=== PATIENT | male | born 1955 | race Caucasian/White ===

== ENCOUNTER 2021-02-09 13:11 | Inpatient (IN) | payer MEDICAID ==
[~2021-02-09] VITALS: Ht 172.7 cm; Wt 91.5 kg
[2021-02-09 13:40] VITALS: BP 156/82
[2021-02-09] MEDS ORDERED: BISACODYL 10 MG SUPP PR PRN (13:55)
[2021-02-09] MEDS ORDERED: ACETAMINOPHEN TAB 650MG DOSE (2X325MG) PO PRN (13:55)
[2021-02-09] MEDS ORDERED: **hydrALAZINE HCL** 25 MG TAB PO PRN (13:55)
--- NOTE | 2021-02-09 14:31 | HPEPDOC ---
Mixed Animal Veterinarian Note DATE OF ADMISSION: 02-09-21 DATE OF SERVICE: 02-09-21 TIME OF ADMISSION: Please refer to physician's admission order. SOURCE OF ADMISSION INFORMATION: [facility] record and patient CHIEF COMPLAINT:stroke HISTORY OF PRESENT ILLNESS: 65M pmh HTN, HLD, hx of CVA, depression presented to [facility] 02-02-21 with worsening confusion and recurrent falls. MRI was ordered showing old bilateral basal ganglia infarcts with an acute right stevenson radiata lacunar infarct. He was started on aspirin and statin and had a spinal tab done which ruled out meningitis. The etiology of his stroke was thought to be due to chronic HTN as patient reported non-compliance with BP meds. He had diarrhea and was tested for C diff which was negative. Imaging was also performed on his left knee, pelvis, and sacrum to rule out fractures in setting of recent falls and all were negative, however did show osteopenia. He was evaluated by therapy and found to have mobility and ADL impairments. On admission he reports right should pain and decreased ROM. He also reports some burning with urination. REVIEW OF SYSTEMS: The following is a completed review of systems and has been reviewed. Review of systems otherwise unremarkable. PAIN: Patient self reports right shoulder pain EYES: No recent vision changes EARS, NOSE, & THROAT: +dysphagia CARDIOVASCULAR: Denies chest pain or palpitations PULMONARY: Denies shortness of breath GASTROINTESTINAL: Denies constipation/diarrhea GENITOURINARY: +dysuria. MUSCULOSKELETAL: generalized weakness NEUROLOGICAL:+right sided paresis HEMATOLOGICAL: denies easy bruising SKIN: denies rash PSYCHIATRIC: Unremarkable All other review of systems found to be negative. PAST MEDICAL HISTORY: as per HPI PAST SURGICAL HISTORY: Bilat inguinal hernia repairs ALLERGIES: Please see below. MEDICATIONS: Please see below. SOCIAL HISTORY: no etoh/illicit drugs/smoking DIET: level 2 PHYSICAL EXAMINATION: VITAL SIGNS: Please see below. GENERAL: Pleasant and cooperative. No acute distress. +right facial droop HEENT: PERRL. Extraocular movements intact. Clear conjunctiva, tongue with white coating CARDIOVASCULAR: Regular rate and rhythm. No murmurs, rubs, or gallops LUNGS: Clear to auscultation bilaterally. No wheezes. No rhonchi ABDOMEN: Soft, nontender, nondistended. Positive bowel sounds. Normal active bowel sounds NEUROLOGICAL: Alert and oriented times three. Cranial nerves II through XII grossly intact. Sensation grossly intact EXTREMITIES: 5\5 strength LUE, 4/5 RUE with +pronator drift, 5\5 strength right lower extremity. 5/5 strength in left lower extremity. +pain with external rotation of right shoulder, no signs of dislocation ++TTP right upper trapezius SKIN: no sacral erythema LABORATORY DATA: Please see below. IMAGING:Imaging documentation personally reviewed by record FUNCTIONAL STATUS: Premorbid: Independent with all activities of daily life as well as mobility On Admission: Min assist for bed mobility, functional transfers, dressing, toileting, ambulating Goals: Mod-I bed mobility, functional transfers, dressing, toileting, ambulating, bathing ASSESSMENT:65-year-old M with past medical history of CVA, HTN who presents status post new left coronoa radiata infarct PLAN: 1. rehab- PT/OT advance mobility and ADLs, strengthen/stretch/maintain ROM all 4 limbs -CUFF SLITTER for cog and swallow, patient with dysphagia, oral care, nystatin rinse for thrush 2. Neuro- hx of multiple bilateral strokes, now with left stevenson radiata infarct- c/u ASA and statin for secondary stroke prevention -on celexa which will help with motor recovery 3. CArdiac- hx of HTN c/u BP meds -monitor for signs of CHF, daily weights. -medicine consulted to assist in overall management 4. Resp- patient reporting mild cough, will order sputum cx, monior labs and fever, start combivent and guaifensain in the meantime 5. - patient reporting dysuria will order UA 6. DVT ppx- heparin 7. Pain- right shoulder pain consistent with OA given pain with external rotation, will order lidoderm patch, and X-ray to r/o fracture/subluxation 8. GI ppx- protonix -will add imodium prn loose stools given recent hx of diarrhea (C diff negative) 9. Dispo- tbd POST ADMISSION PHYSICIAN EVALUATION: Medical and functional status: Description of medical status, medical assessment: As above. Rehabilitation diagnosis and current and prior cold morbid medical conditions as above. Risk of complications and plans to mitigate them as above. Description of functional status current status is as above. Prior status as above. Status compared to preadmission: There are no clinically significant differences between the patient's current status and the information described on the preadmission screening document. Treatment plan anticipated: Treatment plan is as described above. Required disciplines including physical therapy, occupational therapy, others as noted above Intensity of services: 3 hours a day, 6 days a week. Special considerations: There are no specific special or safety considerations that would likely preclude immediate implementation of an intensive rehabilitation program or subsequently influence the plan of care. ATTESTATION: Considering all the information above, it is my best judgment that this patient requires intensive rehabilitation therapy as described above and an inpatient hospital environment due to the complexity of nursing, medical, and rehabilitation needs required by the patient. Furthermore, this patient can reasonably be expected to participate in an benefit from an inpatient rehabilitation stay with an interdisciplinary team approach to the delivery of rehabilitation care under the direction and supervision of rehabilitation physician PROGNOSIS: Excellent ESTIMATED LENGTH OF STAY:14-18 days. PROJECTED DISCHARGE DESTINATION: Home with family support and any durable medical equipment required to increase functional safety and mobility. TIME SPENT COUNSELING AND COORDINATING INITIAL CARE: Greater than 70 minutes. Vital Signs Vital Signs Date Time Temp Pulse Resp B/P (MAP) Pulse Ox O2 Delivery O2 Flow Rate FiO2 02/09/21 13:40 99.0 83 18 156/82 (106) 93 Room Air Home Medications Scheduled Amlodipine Besylate (Amlodipine Besylate) 10 Mg Tablet, 10 MG PO DAILY, (Reporte d) Aspirin (Ecotrin) 81 Mg Tablet.dr, 81 MG PO DAILY, (Reported) Citalopram Hydrobromide (Citalopram HBr) 20 Mg Tablet, 20 MG PO DAILY, (Reported) DECREASED FROM 40 MG AT [facility] Heparin Sodium,Porcine/Pf (Heparin Sod 5,000 Unit/ml Syrg) 5,000 Unit/1 Ml Syringe, 5,000 UNIT INJ Q12H, (Reported) STARTED AT [facility] Lisinopril (Lisinopril) 20 Mg Tablet, 20 MG PO DAILY, (Reported) STARTED AT [facility] Melatonin (Melatonin) 5 Mg Capsule, 5 MG PO QHS, (Reported) Pantoprazole Sodium (Pantoprazole Sodium) 40 Mg Tablet.dr, 40 MG PO DAILY, (Rep orted) STARTED AT [facility] Tamsulosin HCl (Flomax) 0.4 Mg Capsule, 0.4 MG PO QHS, (Reported) Allergies Coded Allergies: lactose (Verified Allergy, Unknown, INTOLERANCE, 02/09/21) A-FIB/CHADSVASC A-FIB History Current/History of A-Fib/PAF?: No Current PO Anticoag Therapy: No CAITY HWANG MD Feb 09, 2021 14:31
[2021-02-09] MEDS ORDERED: LOPERAMIDE 2 MG CAPLET PO PRN (14:40)
[2021-02-09] MEDS ORDERED: LISI20TA33 PO (15:22)
[2021-02-09] MEDS ORDERED: HEPA500057 INJ (15:22)
[2021-02-09] MEDS ORDERED: FLOM0.4C39 PO (15:22)
[2021-02-09] MEDS ORDERED: ECOT81TA5 PO (15:22)
[2021-02-09] MEDS ORDERED: PANT40TA29 PO (15:22)
[2021-02-09] MEDS ORDERED: MELA5CAP2 PO (15:22)
[2021-02-09] MEDS ORDERED: CITA20TA7 PO (15:22)
[2021-02-09] MEDS ORDERED: AMLO1TAB25 PO (15:22)
[2021-02-09] MEDS ORDERED: PILL CUTTER 1 EACH XX PRN (15:50)
[2021-02-09 20:00] VITALS: BP 166/90
[2021-02-09] MEDS: ACETAMINOPHEN 500 MG TAB PO SCH (20:19)
[2021-02-09] MEDS: ATORVASTATIN 20 MG TAB PO SCH (20:19)
[2021-02-09] MEDS: RAMELTEON 8 MG TAB (ROZEREM) PO PRN (20:19)
[2021-02-09] MEDS: TAMSULOSIN 0.4 MG CAP PO SCH (20:19)
[2021-02-09] MEDS: CALCIUM/VITAMIN D 500 MG TAB PO SCH (20:19)
[2021-02-09] MEDS: guaiFENesin 200 MG TAB PO SCH (20:19)
[2021-02-09] MEDS: REMEDY PHYTOPLEX Z-GUARD PASTE 113GM TUBE (FROM STOREROOM PRODUCT) TOP SCH (20:21)
[2021-02-09] MEDS: COMBIVENT RESPIMAT 100-20MCG INHALER 4GM INH SCH (20:22)
[2021-02-09] MEDS ORDERED: DOCUSATE SODIUM 100MG CAPSULE PO SCH (21:00)
[2021-02-09] MEDS: NYSTATIN 500,000 U/5 ML SUSP UDC SSP SCH (21:00)
[2021-02-09] MEDS ORDERED: SENNA 8.6 MG TAB (SENOKOT) PO PRN (21:00)
[2021-02-09] MEDS ORDERED: LIDOCAINE 5% (LIDODERM) PATCH TD SCH (21:00)
[2021-02-09] MEDS ORDERED: SENNA 8.6 MG TAB (SENOKOT) PO SCH (21:00)
[2021-02-10] MEDS: **hydrALAZINE HCL** 25 MG TAB PO SCH ×5 (00:11→23:15)
[2021-02-10 06:00] VITALS: BP 150/78
[2021-02-10 07:14] LABS: BASO # 0.1 10^3/uL (0.0-0.2); BASO % 0.6 % (0.0-1.0); EOS # 0.2 10^3/uL (0.0-0.5); EOS % 1.7 % (0.0-3.0); HEMATOCRIT 36.7 % (42.0-52.0); HEMOGLOBIN 12.5 g/dl (13.5-17.5); LYMPH # 1.2 10^3/uL (1.5-5.0); LYMPH % 13.3 % (24.0-44.0); MEAN CORPUSCULAR HEMOGLOBIN 29.5 pg (27.0-33.0); MEAN CORPUSCULAR HGB CONC 34.1 g/dl (32.0-36.5); MEAN CORPUSCULAR VOLUME 86.6 fl (80.0-96.0); MONO # 0.9 10^3/uL (0.0-0.8); MONO % 10.1 % (2.0-8.0); NEUTROPHILS # 6.5 10^3/uL (1.5-8.5); PLATELET COUNT, AUTOMATED 213 10^3/uL (150-450); RED BLOOD COUNT 4.24 10^6/uL (4.30-6.10); WHITE BLOOD COUNT 8.8 10^3/uL (4.0-10.0)
[2021-02-10 07:38] LABS: ALBUMIN 2.9 GM/DL (3.2-5.2); ALT/SGPT 75 U/L (12-78); BILIRUBIN,TOTAL 1.2 MG/DL (0.2-1.0); BLOOD UREA NITROGEN 9 MG/DL (7-18); CALCIUM LEVEL 8.3 MG/DL (8.8-10.2); CARBON DIOXIDE LEVEL 27 MEQ/L (21-32); CHLORIDE LEVEL 104 MEQ/L (98-107); CREATININE FOR GFR 0.78 MG/DL (0.70-1.30); GLOMERULAR FILTRATION RATE > 60.0 (>49); GLUCOSE, FASTING 91 MG/DL (70-100); POTASSIUM SERUM 3.1 MEQ/L (3.5-5.1); SODIUM LEVEL 137 MEQ/L (136-145); TOTAL PROTEIN 5.9 GM/DL (6.4-8.2)
[2021-02-10] MEDS: COMBIVENT RESPIMAT 100-20MCG INHALER 4GM INH SCH ×4 (07:48→19:23)
[2021-02-10] MEDS ORDERED: **NOTE PATIENT COMMENT** MISC XX SCH (09:00)
[2021-02-10] MEDS ORDERED: POTASSIUM CHLORIDE 10 MEQ SR TABLET PO ONE ×2 (09:00→12:00)
[2021-02-10] MEDS: CALCIUM/VITAMIN D 500 MG TAB PO SCH ×2 (09:04→20:56)
[2021-02-10] MEDS: MAGIC MOUTHWASH SUSPENSION BTL SSP SCH ×3 (09:04→17:09)
[2021-02-10] MEDS: CitaloPRAM (CeleXA) 20 MG TAB PO SCH (09:04)
[2021-02-10] MEDS: NYSTATIN 500,000 U/5 ML SUSP UDC SSP SCH ×3 (09:04→20:56)
[2021-02-10] MEDS: PANTOPRAZOLE 40MG TAB (PROTONIX) PO SCH (09:04)
[2021-02-10] MEDS: ACETAMINOPHEN 500 MG TAB PO SCH ×3 (09:05→20:55)
[2021-02-10] MEDS: guaiFENesin 200 MG TAB PO SCH ×3 (09:06→20:56)
[2021-02-10] MEDS: REMEDY PHYTOPLEX Z-GUARD PASTE 113GM TUBE (FROM STOREROOM PRODUCT) TOP SCH ×3 (09:06→20:56)
[2021-02-10] MEDS: ASPIRIN 81MG ENTERIC TABLET PO SCH (09:06)
[2021-02-10] MEDS: HEPARIN SOD (PORCINE) 5000UNITS/ML 1ML VIAL/SYRINGE SC SCH ×2 (09:06→20:56)
--- NOTE | 2021-02-10 09:32 | REP ---
INDICATION: fall with pain on external rotation. COMPARISON: None. TECHNIQUE: Three views of the right shoulder provided. FINDINGS: The right glenohumeral and acromioclavicular joints are normally aligned. 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 Osteoarthritic hypertrophy and narrowing is seen at the AC joint as well. Periarticular soft tissues are unremarkable. The visualized right hemithorax appears intact. IMPRESSION: Moderate glenohumeral and acromioclavicular joint osteoarthritis. <Electronically signed by Huan Lynch > 02/10/21 [id number]
[2021-02-10] MEDS ORDERED: DICLOFENAC EPOLAMINE 1.3 % PATCH TOP ONE (12:00)
--- NOTE | 2021-02-10 12:35 | CR ---
CONSULTATION DATE: 02/10/2021 REASON FOR CONSULTATION: Management of chronic medical problems. HISTORY OF PRESENT ILLNESS: This is a 65-year-old male with a prior history of smoking over 50 pack years, quit 10 years ago, two packs a day since the age of 14, hypertension, dyslipidemia, history of CVA and noncompliance with his medications and depression, was seen at [facility] on 02/02/2021 with altered mental status and gait instability. MRI showed old bilateral basal ganglia infarct with an acute right stevenson radiata lacunar infarct, given aspirin and statin, CSF negative for acute infection. The patient at that time also complained of abdominal discomfort and loose stools, negative C. Diff. Patient was transferred to [facility] for acute rehab services. PAST MEDICAL HISTORY: 1. Hypertension. 2. Hyperlipidemia. 3. Prior history of CVA. 4. Noncompliant with medications. 5. Depression. 6. Prior history of smoking. PAST SURGICAL HISTORY: 1. Bilateral inguinal hernia repair. ALLERGIES: Lactose intolerant. HOSPITAL MEDICATIONS: 1. Lidocaine patch. 2. Flector patch. 3. Potassium. 4. Norvasc. 5. Aspirin. 6. Lisinopril. 7. Celexa. 8. Protonix. 9. Heparin sub q. 10.Magic Mouthwash. 11.Hydralazine. 12.Nystatin. 13.Acetaminophen. 14.Robitussin. 15.Os-Michael D. 16.Senokot. 17.Colace. 18.Flomax. 19.Lipitor. 20.Combivent. 21.Rozerem. 22.Imodium. 23.Dulcolax. 24.Miralax. 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 Patient's health care proxy is Lesley, he is a full code. FAMILY HISTORY: Mother is alive in her 80s, not taking medications, unknown medical problems. Father at the age of 82 with CVA. REVIEW OF SYSTEMS: Patient complains of chronic right shoulder pain, diffuse and loose bowel movements, weakness of his right upper arm, otherwise negative 12 point system review. PHYSICAL EXAMINATION: VITAL SIGNS: Temperature is 98, pulse 81, respiratory rate 18, blood pressure 133/70, 95% on room air. GENERAL: Patient is awake, alert and oriented to person, place and time, answers questions appropriately without any slurred speech, expressive or receptive aphasia. He has a notable right facial asymmetry with drooping on the right. HEENT: Tongue is midline. Uvula is midline. No tracheal deviation. Patient has no nasal flaring, no respiratory distress or stridor, JVD, thyromegaly or cervical lymphadenopathy. Patient appears disheveled. LUNGS: Clear to auscultation. No wheezes, rales or rhonchi. HEART: S1 and S2, sinus rhythm, no murmurs, rubs or gallops. ABDOMEN: Obese, soft, nontender and nondistended. Positive bowel sounds x4 quadrants. EXTREMITIES: No cyanosis or clubbing. NEUROLOGIC: Right facial droop. Patient has 5/5 strength of bilateral lower extremities. Right upper extremity has 4/5 strength. No sensory disturbance. Speech is fluent. Tongue is midline. Uvula is midline. Slight pronator drift on the right upper extremity. No dysmetria on finger to nose testing. LABORATORY DATA AND IMAGING STUDIES: Have been reviewed. ASSESSMENT AND PLAN: A 65-year-old male with a history of hypertension, hyperlipidemia, prior history of smoking, CVA, noncompliant with medications, admitted after having an acute right stevenson radiata lacunar infarct with old bilateral basal ganglion infarct, complains of diarrhea and right shoulder pain. CURRENT ISSUES: 1. Acute right stevenson radiata lacunar infarct. 2. Old bilateral basal ganglia CVA. 3. Hypertension. 4. Hyperlipidemia. 5. Depression. 6. History of medical noncompliance, not taking his medications. 7. Chronic right shoulder pain. 8. Hypertension. 9. Depression. PLAN: Patient is resumed on all of his home medications including Lipitor, Atorvastatin, Norvasc, Lisinopril, Celexa, Protonix, DVT prophylaxis with Heparin sub q. and bowel regimen. Acute rehab services, PT/OT. Patient has quit smoking. He says he lives with his grandchildren at home and will have supervision. [facility]IT[facility]
[2021-02-10 14:00] VITALS: BP 160/85
[2021-02-10] MEDS: RAMELTEON 8 MG TAB (ROZEREM) PO PRN (20:55)
[2021-02-10] MEDS: ATORVASTATIN 20 MG TAB PO SCH (20:56)
[2021-02-10] MEDS: TAMSULOSIN 0.4 MG CAP PO SCH (20:56)
[2021-02-10 21:00] VITALS: BP 161/80
[2021-02-11 00:14] LABS: BASO % 0.4 % (0.0-1.0); EOS # 0.2 10^3/uL (0.0-0.5); EOS % 1.6 % (0.0-3.0); HEMATOCRIT 39.6 % (42.0-52.0); HEMOGLOBIN 13.3 g/dl (13.5-17.5); LYMPH # 1.3 10^3/uL (1.5-5.0); LYMPH % 14.2 % (24.0-44.0); MEAN CORPUSCULAR HEMOGLOBIN 29.1 pg (27.0-33.0); MEAN CORPUSCULAR HGB CONC 33.6 g/dl (32.0-36.5); MEAN CORPUSCULAR VOLUME 86.7 fl (80.0-96.0); MONO # 0.9 10^3/uL (0.0-0.8); MONO % 9.9 % (2.0-8.0); NEUTROPHILS # 6.9 10^3/uL (1.5-8.5); NEUTROPHILS % 73.6 % (36.0-66.0); PLATELET COUNT, AUTOMATED 240 10^3/uL (150-450); RED BLOOD COUNT 4.57 10^6/uL (4.30-6.10); WHITE BLOOD COUNT 9.3 10^3/uL (4.0-10.0)
[2021-02-11] MEDS: APIXABAN 5 MG TAB (ELIQUIS) PO SCH ×3 (00:22→21:41)
--- NOTE | 2021-02-11 00:27 | IPNPDOC ---
Text Note Date of Service The patient was seen on 02/11/21. NOTE Alerted by nursing staff patient was found to have irregular heart beat on ro utine assessment. EKG performed at this time showed rate controlled a-fib. I saw and examined the patient who had no complaints and told me he has never been diagnosed with an arrhythmia to his knowledge. Patient had irregularly irregular rhythm on auscultation. plan: start eliquis 5mg bid, f/u cbc, cmp, bnp, cardiac injury profile, tsh, t4, echo. I will also be holding patients celexa at this time as his qt interval was 498 and celexa is known to prolong qt interval VS,Fishbone, I+O VS, Fishbone, I+O Laboratory Tests 02/10/21 06:26 02/10/21 06:27 02/11/21 00:00 Vital Signs Date Time Temp Pulse Resp B/P (MAP) Pulse Ox O2 Delivery O2 Flow Rate FiO2 02/10/21 23:15 132/75 02/10/21 21:00 98.9 87 18 94 Room Air I&O- Last 24 Hours up to 6 AM 02/11/21 05:59 Intake Total 350 ml Output Total 650 ml Balance -300 ml UGO FONTANEZ Feb 11, 2021 00:27
[2021-02-11 00:45] LABS: ALT/SGPT 70 U/L (12-78); BILIRUBIN,TOTAL 0.8 MG/DL (0.2-1.0); BLOOD UREA NITROGEN 11 MG/DL (7-18); CALCIUM LEVEL 8.6 MG/DL (8.8-10.2); CARBON DIOXIDE LEVEL 25 MEQ/L (21-32); CHLORIDE LEVEL 108 MEQ/L (98-107); CK-MB VALUE MASS 3.6 NG/ML (<3.6); CPK CREATINE PHOSPHOKINASE 181 U/L (39-308); CREATININE FOR GFR 0.72 MG/DL (0.70-1.30); FREE T4 1.36 NG/DL (0.76-1.46); GLOMERULAR FILTRATION RATE > 60.0 (>49); GLUCOSE, FASTING 107 MG/DL (70-100); MAGNESIUM LEVEL 2.1 MG/DL (1.8-2.4); MB/CK RELATIVE INDEX 1.99 (< OR =4); NT-PRO BNP 1025 PG/ML (<125); POTASSIUM SERUM 3.3 MEQ/L (3.5-5.1); SODIUM LEVEL 141 MEQ/L (136-145); TOTAL PROTEIN 6.1 GM/DL (6.4-8.2)
[2021-02-11 06:30] VITALS: BP 130/78
[2021-02-11] MEDS: **hydrALAZINE HCL** 25 MG TAB PO SCH ×4 (06:50→23:10)
[2021-02-11] MEDS: COMBIVENT RESPIMAT 100-20MCG INHALER 4GM INH SCH ×4 (07:21→20:19)
[2021-02-11 07:27] LABS: BLOOD UREA NITROGEN 11 MG/DL (7-18); CALCIUM LEVEL 8.6 MG/DL (8.8-10.2); CARBON DIOXIDE LEVEL 23 MEQ/L (21-32); CHLORIDE LEVEL 108 MEQ/L (98-107); CREATININE FOR GFR 0.82 MG/DL (0.70-1.30); GLOMERULAR FILTRATION RATE > 60.0 (>49); GLUCOSE, FASTING 99 MG/DL (70-100); POTASSIUM SERUM 3.3 MEQ/L (3.5-5.1); SODIUM LEVEL 141 MEQ/L (136-145)
[2021-02-11] MEDS: MAGIC MOUTHWASH SUSPENSION BTL SSP SCH ×3 (09:05→17:13)
[2021-02-11] MEDS: REMEDY PHYTOPLEX Z-GUARD PASTE 113GM TUBE (FROM STOREROOM PRODUCT) TOP SCH ×3 (09:05→21:42)
[2021-02-11] MEDS: LIDOCAINE 5% (LIDODERM) PATCH TD SCH (09:05)
[2021-02-11] MEDS: guaiFENesin 200 MG TAB PO SCH ×3 (09:06→21:41)
[2021-02-11] MEDS: NYSTATIN 500,000 U/5 ML SUSP UDC SSP SCH ×3 (09:06→21:40)
[2021-02-11] MEDS: POTASSIUM CHLORIDE 10 MEQ SR TABLET PO SCH ×2 (09:06→21:41)
[2021-02-11] MEDS: CALCIUM/VITAMIN D 500 MG TAB PO SCH ×2 (09:06→21:41)
[2021-02-11] MEDS: ACETAMINOPHEN 500 MG TAB PO SCH ×3 (09:06→21:40)
[2021-02-11] MEDS: ASPIRIN 81MG ENTERIC TABLET PO SCH (09:06)
[2021-02-11] MEDS: PANTOPRAZOLE 40MG TAB (PROTONIX) PO SCH (09:06)
[2021-02-11] MEDS ORDERED: MECLIZINE 25 MG TABLET PO ONE (09:30)
[2021-02-11 10:00] VITALS: BP_SYST 139; BP_SYST 146; BP_SYST 149; BP_DIAS 74; BP_DIAS 78; BP_DIAS 87
--- NOTE | 2021-02-11 12:51 | ECGEPIP ---
[facility] Test Date: 2021-02-10 Pat Name: BRYON SINGH Department: Room: [place] [address] Gender: Male Manual Tester: EMILIANA : [id number] Requested By: UGO Gaytan Order Number: [id number] Reading MD: Dhruv Perla Measurements Intervals [place] Rate: 89 P: DE: QRS: 67 QRSD: 114 T: 0 QT: 410 QTc: 498 Interpretive Statements underlying atrial fibrillation with controlled ventricular response. Incomplete RIGHT BUNDLE BRANCH BLOCK with slow precordial R wave progression, persistent R waves in V5 and V6, and minuscule inferior Q waves; body habitus versus pulmonary disease. Rule out prior IWMI. No prior tracing for comparison. Clincal correlation advised Electronically Signed on 02-11-2021 12:51:04 EDT by Dhruv Perla
[2021-02-11 14:00] VITALS: BP_SYST 137; BP_SYST 145; BP_SYST 160; BP_DIAS 78; BP_DIAS 80; BP_DIAS 83
[2021-02-11 18:00] VITALS: BP_SYST 138; BP_SYST 139; BP_SYST 142; BP_DIAS 69; BP_DIAS 78
[2021-02-11] MEDS: NS 1,000 ML IV SCH (18:52)
[2021-02-11 21:00] VITALS: BP 134/71
[2021-02-11] MEDS: TAMSULOSIN 0.4 MG CAP PO SCH (21:40)
[2021-02-11] MEDS: ATORVASTATIN 20 MG TAB PO SCH (21:41)
--- NOTE | 2021-02-11 21:41 | IPNPDOC ---
PM&R Progress Note DATE OF SERVICE: Feb 10, 2021 Detention Worker Progress Note Subjective: Patient reporting he feels ok today, that he slept well, and has no new weakness or fevers. REVIEW OF SYSTEMS: The following is a completed review of systems and has been reviewed. Review of systems otherwise unremarkable. PAIN: Patient self reports right shoulder pain EYES: No recent vision changes EARS, NOSE, & THROAT: +dysphagia CARDIOVASCULAR: Denies chest pain or palpitations PULMONARY: Denies shortness of breath GASTROINTESTINAL: Denies constipation/diarrhea GENITOURINARY: +dysuria (improving) MUSCULOSKELETAL: generalized weakness NEUROLOGICAL:+right sided paresis HEMATOLOGICAL: denies easy bruising SKIN: denies rash PSYCHIATRIC: Unremarkable All other review of systems found to be negative. PHYSICAL EXAMINATION: VITAL SIGNS: Please see below. GENERAL: Pleasant and cooperative. No acute distress. +right facial droop HEENT: PERRL. Extraocular movements intact. Clear conjunctiva, tongue with white coating CARDIOVASCULAR: Regular rate and rhythm. No murmurs, rubs, or gallops LUNGS: Clear to auscultation bilaterally. No wheezes. No rhonchi ABDOMEN: Soft, nontender, nondistended. Positive bowel sounds. Normal active bowel sounds NEUROLOGICAL: Alert and oriented times three. Cranial nerves II through XII grossly intact. Sensation grossly intact EXTREMITIES: 5\5 strength LUE, 4/5 RUE with +pronator drift, 5\5 strength right lower extremity. 5/5 strength in left lower extremity. +pain with external rotation of right shoulder, no signs of dislocation, negative neers +TTP right upper trapezius SKIN: no sacral erythema ASSESSMENT:65-year-old M with past medical history of CVA, HTN who presents stat us post new left coronoa radiata infarct PLAN: 1. rehab- PT/OT advance mobility and ADLs, strengthen/stretch/maintain ROM all 4 limbs -HOP SEPARATOR for cog and swallow, patient with dysphagia, oral care, nystatin rinse for thrush 2. Neuro- hx of multiple bilateral strokes, now with left stevenson radiata infa rct- c/u ASA and statin for secondary stroke prevention -on celexa which will help with motor recovery 3. CArdiac- hx of HTN c/u BP meds -monitor for signs of CHF, daily weights. -medicine consulted to assist in overall management 4. Resp- patient reporting mild cough, f/u sputum cx, monitor labs and fever, c/u combivent and guaifenesin 5. - patient reporting dysuria- UA negative for infection 6. DVT ppx- heparin 7. Pain- right shoulder pain consistent with OA given pain with external rotati on, will order lidoderm patch, X-ray ordered to r/o fracture/subluxation 8. GI ppx- protonix -c/u imodium prn loose stools given recent hx of diarrhea (C diff negative) 9. Dispo- tbd Allergies Coded Allergies: lactose (Verified Allergy, Unknown, INTOLERANCE, 02/09/21) Vital Signs Vital Signs Date Time Temp Pulse Resp B/P (MAP) Pulse Ox O2 Delivery O2 Flow Rate FiO2 02/11/21 18:00 99.3 100 18 139/78 (98) 94 Room Air Laboratory Data CBC/BMP Laboratory Tests 02/11/21 00:00 02/11/21 06:18 Labs 24H Laboratory Tests 2 02/11/21 00:00: Immature Granulocyte % (Auto) 0.3, Neutrophils (%) (Auto) 73.6H, Lymphocytes (%) (Auto) 14.2L, Monocytes (%) (Auto) 9.9H, Eosinophils (%) (Auto) 1.6, Basophils (%) (Auto) 0.4, Neutrophils # (Auto) 6.9, Lymphocytes # (Auto) 1.3L, Monocytes # (Auto) 0.9H, Eosinophils # (Auto) 0.2, Basophils # (Auto) 0.0, Nucleated Red Blood Cells % (auto) 0.0, Anion Gap 8, Glomerular Filtration Rate > 60.0, Calcium Level 8.6L, Magnesium Level 2.1, Total Bilirubin 0.8, Aspartate Amino Transf (AST/SGOT) 48H, Alanine Aminotransferase (ALT/SGPT) 70, Alkaline Phosphatase 123H, Total Creatine Kinase 181, Creatine Kinase MB 3.6, Creatine Kinase MB Relative Index 1.99, LO-Qio-E-Type Natriuretic Peptide 1025H, Total Protein 6.1L, Albumin 3.0L, Albumin/Globulin Ratio 1.0, Thyroid Stimulating Hormone (TSH) 3.070, Free Thyroxine 1.36 02/11/21 06:18: Anion Gap 10, Glomerular Filtration Rate > 60.0, Calcium Level 8.6L Current Medications Current Medications Current Medications Medications (Trade) Dose Ordered Sig/Wallace Route PRN Reason Start Time Stop Time Status Last Admin Dose Admin Acetaminophen (Tylenol Tab) 650 mg Q4HP PRN PO fever/MILD PAIN (PS 1-4) 02/09/21 13:55 02/09/21 18:58 DC 02/09/21 18:41 Acetaminophen (Tylenol Tab) 1,000 mg TID PO 02/09/21 21:00 02/11/21 17:14 Albuterol/ Ipratropium (Combivent Respimat 100-20mcg) 1 puff RQID INH 02/09/21 20:00 02/11/21 20:19 Amlodipine Besylate (Norvasc) 10 mg DAILY PO 02/10/21 09:00 02/11/21 09:07 Apixaban (Eliquis) 5 mg BID PO 02/10/21 21:00 02/11/21 09:07 Aspirin (Ecotrin) 81 mg DAILY PO 02/10/21 09:00 02/11/21 09:06 Atorvastatin Calcium (Lipitor) 80 mg QHS PO 02/09/21 21:00 02/10/21 20:56 Bisacodyl (Dulcolax Suppository) 10 mg DAILYPRN PRN PA CONSTIPATION 02/09/21 13:55 Calcium/Vitamin D (Oscal D) 500 mg BID PO 02/09/21 21:00 02/11/21 09:06 Citalopram Hydrobromide (CeleXA) 20 mg DAILY PO 02/10/21 09:00 Hold 02/10/21 09:04 Docusate Sodium (Colace) 100 mg BID PO 02/09/21 21:00 02/09/21 14:41 DC Docusate Sodium (Colace) 100 mg BID PRN PO constipation 02/09/21 21:00 Guaifenesin (Robitussin Tab) 400 mg TID PO 02/09/21 21:00 02/11/21 17:14 Heparin Sodium (Porcine) (Heparin) 5,000 units Q12H SC 02/10/21 09:00 02/10/21 23:39 DC 02/10/21 20:56 Home Med (Med Rec Complete!) ASDIRECTED XX 02/09/21 15:25 02/09/21 15:38 DC Hydralazine HCl (Apresoline) 12.5 mg Q6H PRN PO sBP >140 or dBP >90 02/09/21 13:55 02/09/21 21:54 DC 02/09/21 20:20 Hydralazine HCl (Apresoline) 25 mg Q6H PO 02/10/21 00:00 02/11/21 17:14 Lidocaine (Lidoderm Patch) 1 patch QHS TD 02/09/21 21:00 02/10/21 09:34 DC 02/09/21 20:20 Lidocaine (Lidoderm Patch) 2 patch DAILY TD 02/11/21 09:00 02/11/21 09:05 Lidocaine/ Diphenhydr/Alum/ Mg/Simeth (Magic Mouthwash) 5ML AC SSP 02/10/21 07:30 02/11/21 17:13 Lisinopril (Prinivil) 20 mg DAILY PO 02/10/21 09:00 02/11/21 09:06 Loperamide HCl (Imodium) 2 mg ASDIRECTED PRN PO DIARRHEA 02/09/21 14:40 Meclizine HCl (Antivert) 50 mg TIDP PRN PO dizziness 02/11/21 08:40 Non-Formulary Medication ( See Comment Field Below ) REMOVE LIDODERM PATCH DAILY@0900 XX 02/10/21 09:00 02/10/21 13:00 DC 02/10/21 09:06 Non-Formulary Medication ( See Comment Field Below ) REMOVE LIDODERM PATCH DAILY@21 XX 02/11/21 21:00 Nystatin (Mycostatin) 5 ml TID SSP 02/09/21 21:00 02/14/21 16:01 02/11/21 17:14 Pantoprazole Sodium (Protonix) 40 mg DAILY PO 02/10/21 09:00 02/11/21 09:06 Polyethylene Glycol (Miralax) 1 pkt DAILY PRN PO CONSTIPATION 02/09/21 13:55 Potassium Chloride (Micro-K Extencaps) 40 meq BID PO 02/11/21 09:00 02/11/21 09:06 Ramelteon (Rozerem) 8 mg QHS PRN PO INSOMNIA 02/09/21 19:45 02/10/21 20:55 Senna (Senokot) 1 tab QHS PO 02/09/21 21:00 02/09/21 14:41 DC Senna (Senokot) 1 tab QHS PRN PO constipation 02/09/21 21:00 Sodium Chloride 1,000 ml @ 100 mls/hr Q10H IV 02/11/21 19:00 02/12/21 14:59 02/11/21 18:52 Tamsulosin HCl (Flomax) 0.4 mg DAILY@2100 PO 02/09/21 21:00 02/10/21 20:56 CAITY HWANG MD Feb 11, 2021 21:41
[2021-02-11] MEDS: **NOTE PATIENT COMMENT** MISC XX SCH (21:42)
[2021-02-12] MEDS: NS 1,000 ML IV SCH (04:27)
[2021-02-12] MEDS: **hydrALAZINE HCL** 25 MG TAB PO SCH ×4 (06:20→23:45)
[2021-02-12 06:23] VITALS: BP 131/69
[2021-02-12] MEDS: COMBIVENT RESPIMAT 100-20MCG INHALER 4GM INH SCH ×4 (07:24→19:10)
[2021-02-12] MEDS: REMEDY PHYTOPLEX Z-GUARD PASTE 113GM TUBE (FROM STOREROOM PRODUCT) TOP SCH ×3 (09:00→20:10)
[2021-02-12] MEDS: NYSTATIN 500,000 U/5 ML SUSP UDC SSP SCH ×3 (09:06→20:08)
[2021-02-12] MEDS: PANTOPRAZOLE 40MG TAB (PROTONIX) PO SCH (09:06)
[2021-02-12] MEDS: MAGIC MOUTHWASH SUSPENSION BTL SSP SCH ×3 (09:06→18:31)
[2021-02-12] MEDS: CALCIUM/VITAMIN D 500 MG TAB PO SCH ×2 (09:06→20:09)
[2021-02-12] MEDS: LIDOCAINE 5% (LIDODERM) PATCH TD SCH (09:07)
[2021-02-12] MEDS: guaiFENesin 200 MG TAB PO SCH ×3 (09:07→20:09)
[2021-02-12] MEDS: ASPIRIN 81MG ENTERIC TABLET PO SCH (09:07)
[2021-02-12] MEDS: POTASSIUM CHLORIDE 10 MEQ SR TABLET PO SCH ×2 (09:07→20:09)
[2021-02-12] MEDS: ACETAMINOPHEN 500 MG TAB PO SCH ×3 (09:08→20:09)
[2021-02-12] MEDS: APIXABAN 5 MG TAB (ELIQUIS) PO SCH ×2 (09:08→20:09)
[2021-02-12 14:00] VITALS: BP 149/84
--- NOTE | 2021-02-12 18:42 | IPN ---
PROGRESS NOTE DATE: 02/12/2021 SUBJECTIVE: Patient complained of dizziness, worsening gait ataxia yesterday and was orthostatic with decrease in urine output and decrease in oral intake, saying that he is not feeling well. STAT MRI was performed yesterday. Patient has a recent diagnosis of new onset atrial fibrillation, but was rate controlled, appeared to be orthostatic, and was given intravenous (IV) fluids overnight. This morning, patient denies any chest pain, pressure, tightness, dizziness or lightheadedness. No falls. No complaints of some gait ataxia currently, with fall precautions and assisted ambulation only. Afebrile overnight. No fever, chills or shortness of breath. PHYSICAL EXAMINATION: Temperature 98.1, pulse 86, respiratory rate 16, blood pressure 131/69, 96% on room air. INTAKE AND OUTPUT: Intake 1070, output 525 yesterday. Current weight is 91.6 kg. GENERAL: Awake, alert, oriented, able to speak in full sentences. HEENT: No nasopharyngeal deviation. Face is asymmetric with right facial drooping. Uvula and tongue both midline. LUNGS: Clear to auscultation. No wheezing, rales or rhonchi. HEART: S1, S2. Irregularly irregular. ABDOMEN: Soft, nontender, nondistended. Positive bowel sounds. EXTREMITIES: No cyanosis or clubbing. NEUROLOGIC: Slight pronator drift on the right upper extremity. No dysmetria on [id number]-[id number] testing. Right upper extremity 4/5 strength. Bilateral lower extremities 5/5 strength. LABORATORY DATA: Laboratory data, imaging studies: Please see the chart. ASSESSMENT: A 65-year-old male with history of hypertension, hyperlipidemia, prior history of smoking, cerebrovascular accident (CVA), noncompliant with medications, admitted after an acute right stevenson radiata lacunar infarction with old bilateral basal ganglia infarctions, complaint of diarrhea and right shoulder pain, admitted to acute rehabilitation services due to new CVA in the setting of old bilateral basal ganglia CVA. Patient complained of dizziness, was found to be orthostatic and complained of not feeling well with decrease in urine output. Active issues are as follows: 1. Decrease in urine output due to poor oral intake. Patient is currently on IV fluid trial times 2 liters. Monitor intake and output and hold blood pressure medications if he becomes hypotensive. 2. Acute right stevenson radiata lacunar infarction with old bilateral basal ganglia cerebrovascular accident (CVA) with ataxia. Worsening. Repeat MRI has been reviewed. Patient has a new onset of atrial fibrillation and has been placed on Eliquis 5 mg twice a day. 3. New onset atrial fibrillation. Currently on apixaban. Has had two doses prior to worsening gait ataxia yesterday. Compliant with medications in acute rehabilitation unit and has not been refusing anything. 4. Hypertension, currently controlled. Holding parameters placed. 5. Hyperlipidemia, chronic. On statin. 6. Depression, chronic. 7. History of medical noncompliance. Not taking his medications for his stroke. Currently compliant while in acute rehabilitation unit (ARU). 8. Chronic right shoulder pain. As needed pain medications. PLAN: Fall precautions. Activity as tolerated, but assisted ambulation. Continue with physical therapy (PT), occupational therapy (OT). Monitor intake and output, daily weights and urine output. MTDD
[2021-02-12 19:49] VITALS: BP 142/81
[2021-02-12] MEDS: ATORVASTATIN 20 MG TAB PO SCH (20:08)
[2021-02-12] MEDS: TAMSULOSIN 0.4 MG CAP PO SCH (20:09)
[2021-02-12] MEDS: **NOTE PATIENT COMMENT** MISC XX SCH (20:10)
[2021-02-12] MEDS: RAMELTEON 8 MG TAB (ROZEREM) PO PRN (23:48)
[2021-02-13] VITALS (11 sets, daily range): BP systolic 116–200; BP diastolic 68–100
[2021-02-13] MEDS: **hydrALAZINE HCL** 25 MG TAB PO SCH ×3 (05:09→17:51)
[2021-02-13] MEDS: MAGIC MOUTHWASH SUSPENSION BTL SSP SCH ×3 (07:30→16:38)
[2021-02-13] MEDS: ASPIRIN 81MG ENTERIC TABLET PO SCH (08:11)
[2021-02-13] MEDS: APIXABAN 5 MG TAB (ELIQUIS) PO SCH ×2 (08:12→20:21)
--- NOTE | 2021-02-13 08:20 | REP ---
INDICATION: new afib dizziness ataxia r/o cerebellar cva. Repeat dictation. Preliminary report is provided at the time of the exam by michael COTA. COMPARISON: None. TECHNIQUE: Axial and sagittal imaging planes are utilized for T1 and T2-weighted scans. Sequences include spin-echo, fast spin echo, FLAIR, and diffusion weighted sequences. FINDINGS: No bony calvarial lesion is seen. Craniocervical junction and upper cervical cord are normal in appearance. There is no MR evidence of significant paranasal sinus disease. No intraorbital abnormality is seen. The lateral, third, and fourth ventricles are normal in size and position. There is no evidence of intracranial mass or hemorrhage. However, T2 weighted scans and diffusion-weighted images demonstrate acute ischemia pattern in several areas. These include the left frontal periventricular region and bilaterally in the posterior frontal periventricular stevenson radiata region. There is restricted diffusion in the left thalamus with some linear area of restricted diffusion coursing along the left cerebral peduncle. There are small vessel changes and there is minimal generalized volume loss. No extra-axial fluid collection is seen. No mass or midline shift is observed. There is evidence of an old lacunar infarct in the right basal ganglia. IMPRESSION: Multifocal areas of acute ischemia as above.. <Electronically signed by Huan Lynch > 02/13/21 1443
[2021-02-13] MEDS: ACETAMINOPHEN 500 MG TAB PO SCH ×3 (09:00→20:22)
[2021-02-13] MEDS: LIDOCAINE 5% (LIDODERM) PATCH TD SCH ×2 (09:00→09:20)
[2021-02-13] MEDS: COMBIVENT RESPIMAT 100-20MCG INHALER 4GM INH SCH ×4 (09:17→20:00)
[2021-02-13] MEDS: PANTOPRAZOLE 40MG TAB (PROTONIX) PO SCH (09:19)
[2021-02-13] MEDS: CALCIUM/VITAMIN D 500 MG TAB PO SCH ×2 (09:19→20:21)
[2021-02-13] MEDS: NYSTATIN 500,000 U/5 ML SUSP UDC SSP SCH ×3 (09:19→20:21)
[2021-02-13] MEDS: REMEDY PHYTOPLEX Z-GUARD PASTE 113GM TUBE (FROM STOREROOM PRODUCT) TOP SCH ×3 (09:20→20:23)
[2021-02-13] MEDS: POTASSIUM CHLORIDE 10 MEQ SR TABLET PO SCH ×2 (09:20→20:21)
[2021-02-13] MEDS: guaiFENesin 200 MG TAB PO SCH ×3 (09:20→20:21)
--- NOTE | 2021-02-13 09:49 | IPNPDOC ---
Text Note Date of Service The patient was seen on 02/13/21. NOTE Pt seen and exmained. The patient denies any chest pain, pressure, tightness, dizziness or lightheadedness. Afebrile overnight. No fever, chills or shortness of breath. PHYSICAL EXAMINATION: GENERAL: Awake, alert, oriented, able to speak in full sentences. HEENT: No nasopharyngeal deviation. Face is asymmetric with right facial drooping. Uvula and tongue both midline. LUNGS: Clear to auscultation. No wheezing, rales or rhonchi. HEART: S1, S2. Irregularly irregular. ABDOMEN: Soft, nontender, nondistended. Positive bowel sounds. EXTREMITIES: No cyanosis or clubbing. NEUROLOGIC: Slight pronator drift on the right upper extremity. No dysmetria on [id number]-[id number] testing. Right upper extremity 4/5 strength. Bilateral lower extremities 5/5 strength. LABORATORY DATA: Laboratory data, imaging studies: Please see the chart. ASSESSMENT and PLAN: A 65-year-old male with history of hypertension, hyperlipidemia, prior history of smoking, cerebrovascular accident (CVA), noncompliant with medications, admitted after an acute right stevenson radiata lacunar infarction with old bilateral basal ganglia infarctions, complaint of diarrhea and right shoulder pain, admitted to acute rehabilitation services due to new CVA in the setting of old bilateral basal ganglia CVA. Patient complained of dizziness, was found to be orthostatic and complained of not feeling well with decrease in urine output. Active issues are as follows: 1. Decrease in urine output due to poor oral intake. Patient got IV fluid trial times 2 liters. Monitor intake and output and hold blood pressure medications if he becomes hypotensive. The patient has been on lisinopril 20 mg. We will get a basic metabolic panel to look for the renal function. He shows no signs of dehydration or encephalopathy at this time. 2. Acute right stevenson radiata lacunar infarction with old bilateral basal ganglia cerebrovascular accident (CVA) with ataxia. Patient has a new onset of atrial fibrillation and has been placed on Eliquis 5 mg twice a day. . He c ontinues to be on aspirin and high-dose statin. 3. New onset atrial fibrillation. Currently on apixaban. Has had two doses p rior to worsening gait ataxia yesterday. Compliant with medications in acute rehabilitation unit and has not been refusing anything. 4. Hypertension, currently controlled. Holding parameters placed. On lisinopril and hydralazine. 5. Hyperlipidemia, chronic. On statin. 6. Depression, chronic. 7. History of medical noncompliance. Not taking his medications for his stroke. Currently compliant while in acute rehabilitation unit (ARU). 8. Chronic right shoulder pain. As needed pain medications. Fall precautions. Activity as tolerated, but assisted ambulation. Continue with physical therapy (PT), occupational therapy (OT). Monitor intake and output, daily weights and urine output. Disposition as per primary. VS,Fishbone, I+O VS, Fishbone, I+O Vital Signs Date Time Temp Pulse Resp B/P (MAP) Pulse Ox O2 Delivery O2 Flow Rate FiO2 02/13/21 08:16 72 18 150/88 (108) 02/13/21 05:16 98.5 94 Room Air I&O- Last 24 Hours up to 6 AM 02/13/21 06:00 Intake Total 1770 ml Output Total 675 ml Balance 1095 ml SARAY DODGE MD Feb 13, 2021 09:49
[2021-02-13 11:28] LABS: BLOOD UREA NITROGEN 10 MG/DL (7-18); CALCIUM LEVEL 8.7 MG/DL (8.8-10.2); CARBON DIOXIDE LEVEL 25 MEQ/L (21-32); CHLORIDE LEVEL 106 MEQ/L (98-107); CREATININE FOR GFR 0.75 MG/DL (0.70-1.30); GLOMERULAR FILTRATION RATE > 60.0 (>49); GLUCOSE, FASTING 110 MG/DL (70-100); SODIUM LEVEL 137 MEQ/L (136-145)
[2021-02-13] MEDS: MECLIZINE 25 MG TABLET PO PRN (11:47)
[2021-02-13] MEDS ORDERED: VARIBAR NECTAR 40% w/v 240ML SUSP BTL As Ordered ONE (13:53)
[2021-02-13] MEDS ORDERED: BARIUM SULFATE 700 MG TABLET (E-Z-DISK) As Ordered ONE (13:53)
[2021-02-13] MEDS ORDERED: E-Z-PAQUE 96% w/w SUSP 176GM BTL As Ordered ONE (13:53)
[2021-02-13] MEDS ORDERED: VARIBAR PUDDING 40% w/v 230ML TUBE As Ordered ONE (13:53)
--- NOTE | 2021-02-13 17:16 | REP ---
INDICATION: failed bedside eval. COMPARISON: NONE TECHNIQUE: The procedure was performed under the direct supervision of . The procedure was performed with Vilma Crocker from speech pathology present. 5 CC aliquots of thin, pudding, mixed fruit, soft and solid consistency barium as well as a barium pill were administered. 2.1 minutes of fluoroscopy time was utilized for this procedure. FINDINGS: There is no evidence of penetration or aspiration. A detailed report of this examination will be provided by speech pathology. IMPRESSION: There is no evidence of penetration or aspiration. A detailed report of this examination will be provided by speech pathology. <Electronically signed by Contreras Espitia > 02/13/21 1651 <Electronically signed by Huan Lynch > 02/13/21 [id number]
[2021-02-13] MEDS: TAMSULOSIN 0.4 MG CAP PO SCH (20:21)
[2021-02-13] MEDS: ATORVASTATIN 20 MG TAB PO SCH (20:21)
[2021-02-13] MEDS: **NOTE PATIENT COMMENT** MISC XX SCH (20:22)
[2021-02-13] MEDS: RAMELTEON 8 MG TAB (ROZEREM) PO PRN (20:30)
--- NOTE | 2021-02-13 21:09 | IPNPDOC ---
PM&R Progress Note DATE OF SERVICE: Feb 13, 2021 Mimeographer Progress Note DATE OF ADMISSION: Feb 09, 2021 at 13:26 DATE OF SERVICE: Feb 13, 2021 Subjective: 65M pmh HTN, HLD, hx of CVA, depression presented to [facility] 02[facility]02[facility]21 with worsening confusion and recurrent falls. MRI was ordered showing old bilateral basal ganglia infarcts with an acute right stevenson radiata lacunar infarct. He was started on aspirin and statin and had a spinal tab done which ruled out meningitis. The etiology of his stroke was thought to be due to chronic HTN as patient reported non-compliance with BP meds. He had diarrhea and was tested for C diff which was negative. Imaging was also performed on his left knee, pelvis, and sacrum to rule out fractures in setting of recent falls and all were negative, however did show osteopenia. He was evaluated by therapy and found to have mobility and ADL impairments. On admission he had right shoulder pain and decreased ROM and some burning with urination. 02.13.2021 Morning medications. By the afternoon. It was 116/71. Patient noted he felt as if he was spinning.. Speech pathology noted concern over a bedside swallowing evaluation and barium swallow was requested. Orthostatic blood pressures and ongoing blood pressure monitoring requested. REVIEW OF SYSTEMS: The following is a completed review of systems and has been reviewed. Review of systems otherwise unremarkable. PAIN: Patient notes right shoulder pain EYES: No recent vision changes EARS, NOSE, & THROAT: +dysphagia CARDIOVASCULAR: Denies chest pain or palpitations PULMONARY: Denies shortness of breath GASTROINTESTINAL: Denies constipation/diarrhea GENITOURINARY: +dysuria (improving) MUSCULOSKELETAL: generalized weakness NEUROLOGICAL:+right sided paresis HEMATOLOGICAL: denies easy bruising SKIN: denies rash PSYCHIATRIC: Unremarkable All other review of systems found to be negative. PHYSICAL EXAMINATION: VITAL SIGNS: Please see below. GENERAL: Pleasant and cooperative. Mild distress. HEENT: Extraocular movements intact, no nystagmus. Clear conjunctiva, tongue with white coating over half the tongue, upper plate in place. No adenopathy or neck tenderness. CARDIOVASCULAR: Regular rate and rhythm. No murmurs, rubs, or gallops LUNGS: Clear to auscultation bilaterally. No wheezes. No rhonchi ABDOMEN: Soft, nontender, distended. Positive bowel sounds. Normal active bowel sounds NEUROLOGICAL: Alert. Cranial nerves II through XII intact, mild right facial droop. Sensation grossly intact EXTREMITIES: 5\5 strength LUE, 4/5 RUE, 5\5 strength right lower extremity. 5/5 strength in left lower extremity. Negative Homans. SKIN: no sacral erythema IMAGIN02.13.2021 swallowing study There is no evidence of penetration or aspiration . MRI Brain There is no evidence of intracranial mass or hemorrhage. However, T2 weighted scans and diffusion-weighted images demonstrate acute ischemia pattern in several areas. These include the left frontal periventricular region and bilaterally in the posterior frontal periventricular stevenson radiata region. There is restricted diffusion in the left thalamus with some linear area of restricted diffusion coursing along the left cerebral peduncle. There are small vessel changes and there is minimal generalized volume loss 02.10.2021 Shoulder xray The right glenohumeral and acromioclavicular joints are normally aligned. 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 Osteoarthritic hypertrophy and narrowing is seen at the AC joint as well. Periarticular soft tissues are unremarkable. The visualized right hemithorax appears intact ASSESSMENT:65-year-old M with past medical history of CVA, HTN who presents status post new left coronoa radiata infarct , recent episode of dizziness associated with labile blood pressure, possible orthostatic hypotension, OA right shoulder girdle, no evidence aspiration on swallowing study. PLAN: 1. rehab- PT/OT advance mobility and ADLs, strengthen/stretch/maintain ROM all 4 limbs -OYSTER FLOATER for cog and swallow, patient with dysphagia, oral care, nystatin rinse for thrush 2. Neuro- hx of multiple bilateral strokes, now with left stevenson radiata infarct- c/u ASA and statin for secondary stroke prevention -on celexa 3. Cardiac- hx of HTN c/u BP meds and adjustment timing and dosing appreciate hospitalist input -monitor for signs of CHF, daily weights. -medicine consulted to assist in overall management 4. Resp- patient reporting mild cough, f/u sputum cx, monitor labs and fever, c /u combivent and guaifenesin 5. - patient reporting dysuria- UA negative for infection 6. DVT ppx- heparin 7. Pain- right shoulder pain consistent with OA given pain with external rotation, trial lidoderm patch, X-ray ordered to r/o fracture/subluxation 8. GI ppx- protonix -c/u imodium prn loose stools given recent hx of diarrhea (C diff negative) 9. Dispo- tbd Allergies Coded Allergies: lactose (Verified Allergy, Unknown, INTOLERANCE, 02/09/21) Vital Signs Vital Signs Date Time Temp Pulse Resp B/P (MAP) Pulse Ox O2 Delivery O2 Flow Rate FiO2 02/13/21 18:00 182/94 (123) 02/13/21 14:00 98.6 76 18 96 Room Air Laboratory Data CBC/BMP Laboratory Tests 02/13/21 10:07 Labs 24H Laboratory Tests 2 02/13/21 10:07: Anion Gap 6L, Glomerular Filtration Rate > 60.0, Calcium Level 8.7L Current Medications Current Medications Current Medications Medications (Trade) Dose Ordered Sig/Wallace Route PRN Reason Start Time Stop Time Status Last Admin Dose Admin Acetaminophen (Tylenol Tab) 650 mg Q4HP PRN PO fever/MILD PAIN (PS 1-4) 02/09/21 13:55 02/09/21 18:58 DC 02/09/21 18:41 Acetaminophen (Tylenol Tab) 1,000 mg TID PO 02/09/21 21:00 02/13/21 20:22 Albuterol/ Ipratropium (Combivent Respimat 100-20mcg) 1 puff RQID INH 02/09/21 20:00 02/13/21 11:33 Amlodipine Besylate (Norvasc) 10 mg DAILY PO 02/10/21 09:00 02/13/21 08:11 Apixaban (Eliquis) 5 mg BID PO 02/10/21 21:00 02/13/21 20:21 Aspirin (Ecotrin) 81 mg DAILY PO 02/10/21 09:00 02/13/21 08:11 Atorvastatin Calcium (Lipitor) 80 mg QHS PO 02/09/21 21:00 02/13/21 20:21 Bisacodyl (Dulcolax Suppository) 10 mg DAILYPRN PRN NC CONSTIPATION 02/09/21 13:55 Calcium/Vitamin D (Oscal D) 500 mg BID PO 02/09/21 21:00 02/13/21 20:21 Citalopram Hydrobromide (CeleXA) 20 mg DAILY PO 02/10/21 09:00 Hold 02/10/21 09:04 Docusate Sodium (Colace) 100 mg BID PO 02/09/21 21:00 02/09/21 14:41 DC Docusate Sodium (Colace) 100 mg BID PRN PO constipation 02/09/21 21:00 Guaifenesin (Robitussin Tab) 400 mg TID PO 02/09/21 21:00 02/13/21 20:21 Heparin Sodium (Porcine) (Heparin) 5,000 units Q12H SC 02/10/21 09:00 02/10/21 23:39 DC 02/10/21 20:56 Home Med (Med Rec Complete!) ASDIRECTED XX 02/09/21 15:25 02/09/21 15:38 DC Hydralazine HCl (Apresoline) 12.5 mg Q6H PRN PO sBP >140 or dBP >90 02/09/21 13:55 02/09/21 21:54 DC 02/09/21 20:20 Hydralazine HCl (Apresoline) 25 mg Q6H PO 02/10/21 00:00 02/13/21 17:51 Lidocaine (Lidoderm Patch) 1 patch QHS TD 02/09/21 21:00 02/10/21 09:34 DC 02/09/21 20:20 Lidocaine (Lidoderm Patch) 2 patch DAILY TD 02/11/21 09:00 02/12/21 09:07 Lidocaine/ Diphenhydr/Alum/ Mg/Simeth (Magic Mouthwash) 5ML AC SSP 02/10/21 07:30 02/13/21 16:38 Lisinopril (Prinivil) 20 mg DAILY PO 02/10/21 09:00 02/13/21 08:11 Loperamide HCl (Imodium) 2 mg ASDIRECTED PRN PO DIARRHEA 02/09/21 14:40 Meclizine HCl (Antivert) 50 mg TIDP PRN PO dizziness 02/11/21 08:40 02/13/21 11:47 Non-Formulary Medication ( See Comment Field Below ) REMOVE LIDODERM PATCH DAILY@0900 XX 02/10/21 09:00 02/10/21 13:00 DC 02/10/21 09:06 Non-Formulary Medication ( See Comment Field Below ) REMOVE LIDODERM PATCH DAILY@21 XX 02/11/21 21:00 02/13/21 20:22 Nystatin (Mycostatin) 5 ml TID SSP 02/09/21 21:00 02/14/21 16:01 02/13/21 20:21 Pantoprazole Sodium (Protonix) 40 mg DAILY PO 02/10/21 09:00 02/13/21 09:19 Polyethylene Glycol (Miralax) 1 pkt DAILY PRN PO CONSTIPATION 02/09/21 13:55 Potassium Chloride (Micro-K Extencaps) 40 meq BID PO 02/11/21 09:00 02/13/21 20:21 Ramelteon (Rozerem) 8 mg QHS PRN PO INSOMNIA 02/09/21 19:45 02/13/21 20:30 Senna (Senokot) 1 tab QHS PO 02/09/21 21:00 02/09/21 14:41 DC Senna (Senokot) 1 tab QHS PRN PO constipation 02/09/21 21:00 Sodium Chloride 1,000 ml @ 100 mls/hr Q10H IV 02/11/21 19:00 02/12/21 14:59 DC 02/12/21 04:27 Tamsulosin HCl (Flomax) 0.4 mg DAILY@2100 PO 02/09/21 21:00 02/13/21 20:21 JULIETA SURESH MD Feb 13, 2021 21:09
[2021-02-14] MEDS: **hydrALAZINE HCL** 25 MG TAB PO SCH ×5 (00:10→23:45)
[2021-02-14 06:00] VITALS: BP 170/94
[2021-02-14] MEDS: COMBIVENT RESPIMAT 100-20MCG INHALER 4GM INH SCH ×4 (07:39→20:37)
[2021-02-14] MEDS: NYSTATIN 500,000 U/5 ML SUSP UDC SSP SCH ×2 (08:29→16:15)
[2021-02-14] MEDS: ASPIRIN 81MG ENTERIC TABLET PO SCH (08:29)
[2021-02-14] MEDS: MAGIC MOUTHWASH SUSPENSION BTL SSP SCH ×3 (08:29→18:31)
[2021-02-14] MEDS: PANTOPRAZOLE 40MG TAB (PROTONIX) PO SCH (08:30)
[2021-02-14] MEDS: DOCUSATE SODIUM 100MG CAPSULE PO PRN (08:30)
[2021-02-14] MEDS: MECLIZINE 25 MG TABLET PO PRN (08:30)
[2021-02-14] MEDS: guaiFENesin 200 MG TAB PO SCH ×3 (08:30→21:07)
[2021-02-14] MEDS: CitaloPRAM (CeleXA) 20 MG TAB PO SCH (08:30)
[2021-02-14] MEDS: MIRALAX *UNIT DOSE* 17GM PACKET PO PRN (08:30)
[2021-02-14] MEDS: APIXABAN 5 MG TAB (ELIQUIS) PO SCH ×2 (08:30→21:07)
[2021-02-14] MEDS: CALCIUM/VITAMIN D 500 MG TAB PO SCH ×2 (08:30→21:07)
[2021-02-14] MEDS: POTASSIUM CHLORIDE 10 MEQ SR TABLET PO SCH (08:31)
[2021-02-14] MEDS: ACETAMINOPHEN 500 MG TAB PO SCH ×3 (08:31→21:08)
[2021-02-14] MEDS: LIDOCAINE 5% (LIDODERM) PATCH TD SCH (08:32)
[2021-02-14] MEDS: REMEDY PHYTOPLEX Z-GUARD PASTE 113GM TUBE (FROM STOREROOM PRODUCT) TOP SCH ×3 (08:33→21:08)
[2021-02-14 10:00] VITALS: BP 110/64
[2021-02-14 11:31] VITALS: BP 110/64
--- NOTE | 2021-02-14 12:26 | IPNPDOC ---
Text Note Date of Service The patient was seen on 02/14/21. NOTE Pt seen and exmained. No overnight events PHYSICAL EXAMINATION: GENERAL: Awake, alert, oriented, able to speak in full sentences. HEENT: No nasopharyngeal deviation. Face is asymmetric with right facial drooping. Uvula and tongue both midline. LUNGS: Clear to auscultation. No wheezing, rales or rhonchi. HEART: S1, S2. Irregularly irregular. ABDOMEN: Soft, nontender, nondistended. Positive bowel sounds. EXTREMITIES: No cyanosis or clubbing. NEUROLOGIC: Slight pronator drift on the right upper extremity. No dysmetria on [id number] testing. Right upper extremity 4/5 strength. Bilateral lower extremities 5/5 strength. LABORATORY DATA: Laboratory data, imaging studies: Please see the chart. ASSESSMENT and PLAN: A 65-year-old male with history of hypertension, hyperlipidemia, prior history of smoking, cerebrovascular accident (CVA), noncompliant with medications, admitted after an acute right stevenson radiata lacunar infarction with old bilateral basal ganglia infarctions, complaint of diarrhea and right shoulder pain, admitted to acute rehabilitation services due to new CVA in the setting of old bilateral basal ganglia CVA. Patient complained of dizziness, was found to be orthostatic and complained of not feeling well with decrease in urine output. Active issues are as follows: 1. Decrease in urine output due to poor oral intake. Improved. Patient got IV fluid trial times 2 liters. The patient has been on lisinopril 20 mg. BMP reviewed, Cr stable. He shows no signs of dehydration or encephalopathy at this time. 2. Acute right stevenson radiata lacunar infarction with old bilateral basal ganglia cerebrovascular accident (CVA) with ataxia. Patient has a new onset of atrial fibrillation and has been placed on Eliquis 5 mg twice a day. . He continues to be on aspirin and high-dose statin. 3. New onset atrial fibrillation. Currently on apixaban. Has had two doses prior to worsening gait ataxia yesterday. 4. Hypertension, currently controlled. Holding parameters placed. On lisinopril and hydralazine. 5. Hyperlipidemia, chronic. On statin. 6. Depression, chronic. 7. History of medical noncompliance. Not taking his medications for his stroke. Currently compliant while in acute rehabilitation unit (ARU). 8. Chronic right shoulder pain. As needed pain medications. Fall precautions. Activity as tolerated, but assisted ambulation. Continue with physical therapy (PT), occupational therapy (OT). Monitor intake and output, daily weights and urine output. Disposition as per primary. VS,Fishbone, I+O VS, Fishbone, I+O Vital Signs Date Time Temp Pulse Resp B/P (MAP) Pulse Ox O2 Delivery O2 Flow Rate FiO2 02/14/21 12:00 110/64 02/14/21 11:31 98.0 75 18 95 Room Air I&O- Last 24 Hours up to 6 AM 02/14/21 06:00 Intake Total 470 ml Output Total 2525 ml Balance -2055 ml SARAY DODGE MD Feb 14, 2021 12:26
--- NOTE | 2021-02-14 12:29 | IPNPDOC ---
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 MRI was ordered showing old b ilateral basal ganglia infarcts with an acute right stevenson radiata lacunar infarct. He was started on aspirin and statin and had a spinal tab done which ruled out meningitis. The etiology of his stroke was thought to be due to chronic HTN as patient reported non-compliance with BP meds. He had diarrhea and was tested for C diff which was negative. Imaging was also performed on his left knee, pelvis, and sacrum to rule out fractures in setting of recent falls and all were negative, however did show osteopenia. He was evaluated by therapy and found to have mobility and ADL impairments. On admission he had right shoulder pain and decreased ROM and some burning with urination which has improved. 02.13.2021 BP elevated 200 systolic prior to morning medications. By the afternoon. It was 116/71. Patient noted he felt as if he was spinning. Speech pathology noted concern over a bedside swallowing evaluation and barium swallow was requested. Orthostatic blood pressures and ongoing blood pressure monitoring requested. 02.14.2021 Patient is better today, less complaint of dizziness, ready to participate in OT self-care activities today. Systolic blood pressure again elevated this morning at 170. Prior to medications. I discussed with nursing, adjusting the timing of dosing to begin earlier in the morning. We will continue to monitor. Orthostatics. He has when necessary meclizine for dizziness. However, suspect is more related to the blood pressure changes and poststroke effects. He cleared the swallowing evaluation. Case discussed with hospitalist team. REVIEW OF SYSTEMS: The following is a completed review of systems and has been reviewed. Review of systems otherwise unremarkable. PAIN: Patient notes right shoulder pain EYES: No recent vision changes EARS, NOSE, & THROAT: +dysphagia, cleared swallowing eval CARDIOVASCULAR: Denies chest pain or palpitations PULMONARY: Denies shortness of breath GASTROINTESTINAL: Denies constipation/diarrhea GENITOURINARY: +dysuria (improving) MUSCULOSKELETAL: generalized weakness NEUROLOGICAL:+right sided paresis HEMATOLOGICAL: denies easy bruising SKIN: denies rash PSYCHIATRIC: Unremarkable All other review of systems found to be negative. PHYSICAL EXAMINATION: VITAL SIGNS: Please see below. GENERAL: Pleasant and cooperative. Less distress this morning HEENT: Clear conjunctiva, No adenopathy or neck tenderness, left facial droop.. CARDIOVASCULAR: Regular rate and rhythm. No murmurs, rubs, or gallops LUNGS: Clear to auscultation bilaterally. No wheezes. No rhonchi ABDOMEN: Soft, nontender, distended. Positive bowel sounds. NEUROLOGICAL: Alert. mild left facial droop. Sensation grossly intact EXTREMITIES: 4\\5 strength LUE, 4/5 RUE, 5\\5 strength right TA, 4/5 left negative Homans. FUNCTIONAL STATUS: 02.14.2021 Discussed in TEAM Yesterday Attempted standing therex and short distance ambulation; noting significant SOB with 25ft ambulation; Pt. reporting that "he is beat" and "cannot do anymore". Also noting increased level of assist required as needs Lesli to stand safely at end of session. Returned to supine to assess vital signs as Pt. appearing diaphoretic and with slow reaction to verbal cues and assessment; HR 88bpm; SpO2 96% and BP 132/78mmHg. [id number] swallowing study There is no evidence of penetration or aspiration 02.11.2021 MRI Brain There is no evidence of intracranial mass or hemorrhage. However, T2 weighted scans and diffusion-weighted images demonstrate acute ischemia pattern in several areas. These include the left frontal periventricular region and bilaterally in the posterior frontal periventricular stevenson radiata region. There is restricted diffusion in the left thalamus with some linear area of restricted diffusion coursing along the left cerebral peduncle. There are small vessel changes and there is minimal generalized volume loss 02.10.2021 Shoulder xray The right glenohumeral and acromioclavicular joints are normally aligned. 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 Osteoarthritic hypertrophy and narrowing is seen at the AC joint as well. Periarticular soft tissues are unremarkable. The visualized right hemithorax appears intact ASSESSMENT:65-year-old M with past medical history of CVA, HTN who presents status post new left coronoa radiata infarct , recent episode of dizziness associated with labile blood pressure, possible orthostatic hypotension, OA right shoulder girdle, no evidence aspiration on swallowing study, dysarthric. PLAN: 1. 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 Neuro- hx of multiple bilateral strokes, now with left stevenson radiata infarct- c/u ASA and statin for secondary stroke prevention -on celexa 3. Cardiac-Labile HTN c/u BP meds and adjustment timing and dosing appreciate hospitalist input will shift Lisinopril to PM, give Amlodipine earlier in AM for better 24hr coverage, hopefully minimize orthostatic symptoms/changes. Continue close monitoring as he ended up at systsolic 117 yesterday after starting at 200. -monitor for signs of CHF, daily weights, better I&O. -medicine consulted to assist in overall management 4. Resp- patient reporting mild cough, f/u sputum cx, monitor labs and fever, c/u combivent and guaifenesin 5. - patient reporting dysuria- UA negative for infection encourage fluids, monitor. 6. DVT ppx- heparin 7. Pain- right shoulder pain consistent with OA given pain with external rotation, trial lidoderm patch, X-ray negative for fracture/subluxation 8. GI ppx- protonix -c/u imodium prn loose stools given recent hx of diarrhea (C diff negative) 9. Dispo- tbd TIME SPENT: Chart Review, examination, coordination of care with hospitalist team and documentation [45] minutes. Allergies Coded Allergies: lactose (Verified Allergy, Unknown, INTOLERANCE, 02/09/21) Vital Signs Vital Signs Date Time Temp Pulse Resp B/P (MAP) Pulse Ox O2 Delivery O2 Flow Rate FiO2 02/14/21 12:00 110/64 02/14/21 11:31 98.0 75 18 95 Room Air Current Medications Current Medications Current Medications Medications (Trade) Dose Ordered Sig/Wallace Route PRN Reason Start Time Stop Time Status Last Admin Dose Admin Acetaminophen (Tylenol Tab) 650 mg Q4HP PRN PO fever/MILD PAIN (PS 1-4) 02/09/21 13:55 02/09/21 18:58 DC 02/09/21 18:41 Acetaminophen (Tylenol Tab) 1,000 mg TID PO 02/09/21 21:00 02/13/21 20:22 Albuterol/ Ipratropium (Combivent Respimat 100-20mcg) 1 puff RQID INH 02/09/21 20:00 02/14/21 07:39 Amlodipine Besylate (Norvasc) 10 mg DAILY PO 02/10/21 09:00 02/14/21 12:07 DC 02/14/21 08:31 Amlodipine Besylate (Norvasc) 10 mg DAILY@0600 PO 02/15/21 06:00 Apixaban (Eliquis) 5 mg BID PO 02/10/21 21:00 02/14/21 08:30 Aspirin (Ecotrin) 81 mg DAILY PO 02/10/21 09:00 02/14/21 08:29 Atorvastatin Calcium (Lipitor) 80 mg QHS PO 02/09/21 21:00 02/13/21 20:21 Bisacodyl (Dulcolax Suppository) 10 mg DAILYPRN PRN [place] CONSTIPATION 02/09/21 13:55 Calcium/Vitamin D (Oscal D) 500 mg BID PO 02/09/21 21:00 02/14/21 08:30 Citalopram Hydrobromide (CeleXA) 20 mg DAILY PO 02/10/21 09:00 02/14/21 08:30 Docusate Sodium (Colace) 100 mg BID PO 02/09/21 21:00 02/09/21 14:41 DC Docusate Sodium (Colace) 100 mg BID PRN PO constipation 02/09/21 21:00 02/14/21 08:30 Guaifenesin (Robitussin Tab) 400 mg TID PO 02/09/21 21:00 02/14/21 08:30 Heparin Sodium (Porcine) (Heparin) 5,000 units Q12H SC 02/10/21 09:00 02/10/21 23:39 DC 02/10/21 20:56 Home Med (Med Rec Complete!) ASDIRECTED XX 02/09/21 15:25 02/09/21 15:38 DC Hydralazine HCl (Apresoline) 12.5 mg Q6H PRN PO sBP >140 or dBP >90 02/09/21 13:55 02/09/21 21:54 DC 02/09/21 20:20 Hydralazine HCl (Apresoline) 25 mg Q6H PO 02/10/21 00:00 02/14/21 05:37 Lidocaine (Lidoderm Patch) 1 patch QHS TD 02/09/21 21:00 02/10/21 09:34 DC 02/09/21 20:20 Lidocaine (Lidoderm Patch) 2 patch DAILY TD 02/11/21 09:00 02/14/21 08:32 Lidocaine/ Diphenhydr/Alum/ Mg/Simeth (Magic Mouthwash) 5ML AC SSP 02/10/21 07:30 02/14/21 08:29 Lisinopril (Prinivil) 20 mg DAILY PO 02/10/21 09:00 02/14/21 10:31 DC 02/14/21 08:31 Lisinopril (Prinivil) 20 mg DAILY@0600 PO 02/15/21 06:00 02/14/21 12:07 DC Lisinopril (Prinivil) 20 mg QHS PO 02/14/21 21:00 Loperamide HCl (Imodium) 2 mg ASDIRECTED PRN PO DIARRHEA 02/09/21 14:40 Meclizine HCl (Antivert) 50 mg TIDP PRN PO dizziness 02/11/21 08:40 02/14/21 08:30 Non-Formulary Medication ( See Comment Field Below ) REMOVE LIDODERM PATCH DAILY@0900 XX 02/10/21 09:00 02/10/21 13:00 DC 02/10/21 09:06 Non-Formulary Medication ( See Comment Field Below ) REMOVE LIDODERM PATCH DAILY@21 XX 02/11/21 21:00 02/13/21 20:22 Nystatin (Mycostatin) 5 ml TID SSP 02/09/21 21:00 02/14/21 16:01 02/14/21 08:29 Pantoprazole Sodium (Protonix) 40 mg DAILY PO 02/10/21 09:00 02/14/21 08:30 Polyethylene Glycol (Miralax) 1 pkt DAILY PRN PO CONSTIPATION 02/09/21 13:55 02/14/21 08:30 Potassium Chloride (Micro-K Extencaps) 40 meq BID PO 02/11/21 09:00 02/14/21 11:52 DC 02/14/21 08:31 Ramelteon (Rozerem) 8 mg QHS PRN PO INSOMNIA 02/09/21 19:45 02/13/21 20:30 Senna (Senokot) 1 tab QHS PO 02/09/21 21:00 02/09/21 14:41 DC Senna (Senokot) 1 tab QHS PRN PO constipation 02/09/21 21:00 Sodium Chloride 1,000 ml @ 100 mls/hr Q10H IV 02/11/21 19:00 02/12/21 14:59 DC 02/12/21 04:27 Tamsulosin HCl (Flomax) 0.4 mg DAILY@2100 PO 02/09/21 21:00 02/13/21 20:21 JULIETA SURESH MD Feb 14, 2021 12:29
[2021-02-14 15:00] VITALS: BP 137/87
[2021-02-14 18:00] VITALS: BP 147/82
[2021-02-14 20:00] VITALS: BP 124/76
[2021-02-14] MEDS: **NOTE PATIENT COMMENT** MISC XX SCH (21:00)
[2021-02-14] MEDS: RAMELTEON 8 MG TAB (ROZEREM) PO PRN (21:07)
[2021-02-14] MEDS: TAMSULOSIN 0.4 MG CAP PO SCH (21:07)
[2021-02-14] MEDS: ATORVASTATIN 20 MG TAB PO SCH (21:07)
[2021-02-15] MEDS: **hydrALAZINE HCL** 25 MG TAB PO SCH ×4 (05:28→23:50)
[2021-02-15 05:33] VITALS: BP 122/78
--- NOTE | 2021-02-15 06:36 | ECHO ---
ECHOCARDIOGRAM DATE OF PROCEDURE: 02/14/2021 Age: 65 Gender: Male Height: 68 inches Weight: 200 pounds Body surface area: 2.05 m2 PATIENT LOCATION: Inpatient [address] [place] [address], Room 4142. REFERRING PHYSICIAN: JEANNETTE Eastman. INDICATION: Cardiac dysrhythmias. MEASUREMENTS: 2D Measurements: RV 4.2 cm LV 4.7 cm Septum 1.2 cm Posterior wall 1.2 cm Aortic Root 3.9 cm LA 4.0 cm LVEF 75% Doppler Measurements: AV 1.07 m/s LVOT 0.93 m/s LVOT diameter 2.3 cm MV-E 40, A 60, E/A ratio 0.7 Early mitral deceleration time 288 msec E prime medial 4.5, A prime medial 8.1, E prime lateral 5.9 Average E/E prime ratio 7.7/PCWP 11.4 mmHg PV 0.9 m/s Pulmonary artery acceleration time 103 msec PASP 35 mmHg IVC 1.4 cm COMMENTS: Normal sinus rhythm without intraventricular conduction disturbance. M-mode and two-dimensional echocardiography was performed with pulse, continuous wave, color flow, and tissue Doppler studies. Borderline concentric left ventricular hypertrophy with hyperkinetic wall motion. Slightly dilated left atrium with grade 1 LV diastolic dysfunction, but normal estimated mean left atrial pressure. Slightly dilated right heart chambers with normal wall motion and Doppler evidence of mild pulmonary hypertension. Normal to slightly reduced IVC size with normal respiratory collapse against an elevated central venous pressure. Normal aortic diameters. Normal appearing aortic valve and aortic valve function . Slightly thickened mitral annulus, but normal leaflet thickness and excursion with no valvular dysfunction. Normal appearing tricuspid valve with very mild tricuspid insufficiency. No apparent intracardiac mass or pericardial effusion. MTDD
[2021-02-15] MEDS: COMBIVENT RESPIMAT 100-20MCG INHALER 4GM INH SCH ×4 (07:34→20:00)
[2021-02-15] MEDS: ACETAMINOPHEN 500 MG TAB PO SCH ×3 (09:00→20:22)
[2021-02-15] MEDS: PANTOPRAZOLE 40MG TAB (PROTONIX) PO SCH (09:37)
[2021-02-15] MEDS: guaiFENesin 200 MG TAB PO SCH ×3 (09:37→20:22)
[2021-02-15] MEDS: CALCIUM/VITAMIN D 500 MG TAB PO SCH ×2 (09:37→20:22)
[2021-02-15] MEDS: APIXABAN 5 MG TAB (ELIQUIS) PO SCH ×2 (09:37→20:22)
[2021-02-15] MEDS: CitaloPRAM (CeleXA) 20 MG TAB PO SCH (09:37)
[2021-02-15] MEDS: ASPIRIN 81MG ENTERIC TABLET PO SCH (09:37)
[2021-02-15] MEDS: MECLIZINE 25 MG TABLET PO PRN (09:38)
[2021-02-15] MEDS: LIDOCAINE 5% (LIDODERM) PATCH TD SCH (09:38)
--- NOTE | 2021-02-15 09:38 | IPNPDOC ---
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 MRI was ordered showing old vick ateral basal ganglia infarcts with an acute right stevenson radiata lacunar infarct. He was started on aspirin and statin and had a spinal tap done which ruled out meningitis. The etiology of his stroke was thought to be due to chronic HTN as patient reported non-compliance with BP meds. He had diarrhea and was tested for C diff which was negative. Imaging was also performed on his left knee, pelvis, and sacrum to rule out fractures in setting of recent falls and all were negative, however did show osteopenia. He was evaluated by therapy and found to have mobility and ADL impairments. On admission he had right shoulder pain and decreased ROM and some burning with urination. 02.13.2021 BP elevated 200 systolic prior to morning medications. By the afternoon. It was 116/71. Patient noted he felt as if he was spinning. Speech pathology noted concern over a bedside swallowing evaluation and barium swallow was requested. Orthostatic blood pressures and ongoing blood pressure monitoring requested. 02.14.2021 Patient is better today, less complaint of dizziness, ready to participate in OT self-care activities today. Systolic blood pressure again elevated this morning at 170. Prior to medications. I discussed with nursing, adjusting the timing of dosing to begin earlier in the morning. We will continue to monitor. Orthostatics. He has when necessary meclizine for dizziness. However, suspect is more related to the blood pressure changes and poststroke effects. He cleared the swallowing evaluation. Case discussed with hospitalist team. 02.15.2021 He slept much better last night, blood pressure much improved with splitting the dose, lisinopril, at bedtime, earlier Amlodipine. No dizziness this morning. He is up and participating in therapy, although getting winded very easily. Heart rate and races up over 100 with minimal exertion. BM sluggish, frequent urination. REVIEW OF SYSTEMS: The following is a completed review of systems and has been reviewed. Review of systems otherwise unremarkable. PAIN: Patient notes right shoulder pain EYES: No recent vision changes EARS, NOSE, & THROAT: +dysphagia, cleared swallowing eval CARDIOVASCULAR: Denies chest pain or palpitations PULMONARY: Denies shortness of breath GASTROINTESTINAL: Denies constipation/diarrhea GENITOURINARY: +frequency MUSCULOSKELETAL: generalized weakness NEUROLOGICAL:+right sided paresis HEMATOLOGICAL: denies easy bruising SKIN: denies rash PSYCHIATRIC: Unremarkable All other review of systems found to be negative. PHYSICAL EXAMINATION: VITAL SIGNS: Please see below. GENERAL: Pleasant and cooperative. Less distress this morning HEENT: Clear conjunctiva, No adenopathy or neck tenderness, CARDIOVASCULAR: tachycardia S1,S2 LUNGS: Clear to auscultation bilaterally. No wheezes. No rhonchi ABDOMEN: Soft, nontender, distended. Positive bowel sounds. NEUROLOGICAL: Alert. Sensation grossly intact EXTREMITIES: 4\\5 strength LUE, 4/5 RUE, 5\\5 strength right TA, 4/5 left negative Homans. FUNCTIONAL STATUS: 02.15.2021 Pt without c/o dizziness with transitions this session. Family training being provided and Pt educated on supine ther ex and given paper HEP. Pt remains below baseline, however is motivated to improve and a good rehab candidate, making slow progress. Easily fatigues and requires frequent rest breaks. 02.14.2021 Discussed in TEAM Yesterday Attempted standing therex and short distance ambulation; noting significant SOB with 25ft ambulation; Pt. reporting that "he is beat" and "cannot do anymore". Also noting increased level of assist required as needs Lesli to stand safely at end of session. Returned to supine to assess vital signs as Pt. appearing diaphoretic and with slow reaction to verbal cues and assessment; HR 88bpm; SpO2 96% and BP 132/78mmHg. IMAGIN02.13.2021 swallowing study There is no evidence of penetration or aspiration 02.11.2021 MRI Brain There is no evidence of intracranial mass or hemorrhage. However, T2 weighted scans and diffusion-weighted images demonstrate acute ischemia pattern in several areas. These include the left frontal periventricular region and bilaterally in the posterior frontal periventricular stevenson radiata region. There is restricted diffusion in the left thalamus with some linear area of restricted diffusion coursing along the left cerebral peduncle. There are small vessel changes and there is minimal generalized volume loss 02.10.2021 Shoulder xray The right glenohumeral and acromioclavicular joints are normally aligned. 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 Osteoarthritic hypertrophy and narrowing is seen at the AC joint as well. Periarticular soft tissues are unremarkable. The visualized right hemithorax appears intact ASSESSMENT:65-year-old M with past medical history of CVA, HTN who presents status post new left coronoa radiata infarct , recent episode of dizziness associated with labile blood pressure, possible orthostatic hypotension, OA right shoulder girdle, no evidence aspiration on swallowing study. PLAN: 1. 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 Neuro- hx of multiple bilateral strokes, now with left stevenson radiata infarct- c/u ASA and statin for secondary stroke prevention -on celexa 3. Cardiac-Labile HTN c/u BP meds and adjustment timing and dosing appreciate hospitalist input with shift Lisinopril to PM, Amlodipine earlier in AM for better 24hr coverage, will monitor and hopefully minimize orthostatic symptoms/changes. LAM hose to continue. Continue close monitoring as he continues to have orthostatic changes and heart rate/recovery. -monitor for signs of CHF, daily weights, better I&O. -medicine consulted to assist in overall management 4. Resp- patient cough improving, WBC stable,c/u combivent and guaifenesin 5. - patient reporting frequency and dysuria- last UA pos hematuria, negative for infection encourage fluids, will recheck 6. DVT ppx- heparin 7. Pain- right shoulder pain consistent with OA given pain with external rotation, trial lidoderm patch, X-ray negative for fracture/subluxation 8. GI ppx- protonix -c/u imodium prn loose stools given recent hx of diarrhea (C diff negative) 9. Dispo- tbd TIME SPENT: Chart Review, examination and documentation [30] minutes. Allergies Coded Allergies: lactose (Verified Allergy, Unknown, INTOLERANCE, 02/09/21) Vital Signs Vital Signs Date Time Temp Pulse Resp B/P (MAP) Pulse Ox O2 Delivery O2 Flow Rate FiO2 02/15/21 05:33 97.9 67 17 122/78 (93) 93 Room Air Current Medications Current Medications Current Medications Medications (Trade) Dose Ordered Sig/Wallace Route PRN Reason Start Time Stop Time Status Last Admin Dose Admin Acetaminophen (Tylenol Tab) 650 mg Q4HP PRN PO fever/MILD PAIN (PS 1-4) 02/09/21 13:55 02/09/21 18:58 DC 02/09/21 18:41 Acetaminophen (Tylenol Tab) 1,000 mg TID PO 02/09/21 21:00 02/14/21 21:08 Albuterol/ Ipratropium (Combivent Respimat 100-20mcg) 1 puff RQID INH 02/09/21 20:00 02/15/21 07:34 Amlodipine Besylate (Norvasc) 10 mg DAILY PO 02/10/21 09:00 02/14/21 12:07 DC 02/14/21 08:31 Amlodipine Besylate (Norvasc) 10 mg DAILY@0600 PO 02/15/21 06:00 02/15/21 05:27 Apixaban (Eliquis) 5 mg BID PO 02/10/21 21:00 02/14/21 21:07 Aspirin (Ecotrin) 81 mg DAILY PO 02/10/21 09:00 02/14/21 08:29 Atorvastatin Calcium (Lipitor) 80 mg QHS PO 02/09/21 21:00 02/14/21 21:07 Bisacodyl (Dulcolax Suppository) 10 mg DAILYPRN PRN [place] CONSTIPATION 02/09/21 13:55 Calcium/Vitamin D (Oscal D) 500 mg BID PO 02/09/21 21:00 02/14/21 21:07 Citalopram Hydrobromide (CeleXA) 20 mg DAILY PO 02/10/21 09:00 02/14/21 08:30 Docusate Sodium (Colace) 100 mg BID PO 02/09/21 21:00 02/09/21 14:41 DC Docusate Sodium (Colace) 100 mg BID PRN PO constipation 02/09/21 21:00 02/14/21 08:30 Guaifenesin (Robitussin Tab) 400 mg TID PO 02/09/21 21:00 02/14/21 21:07 Heparin Sodium (Porcine) (Heparin) 5,000 units Q12H SC 02/10/21 09:00 02/10/21 23:39 DC 02/10/21 20:56 Home Med (Med Rec Complete!) ASDIRECTED XX 02/09/21 15:25 02/09/21 15:38 DC Hydralazine HCl (Apresoline) 12.5 mg Q6H PRN PO sBP >140 or dBP >90 02/09/21 13:55 02/09/21 21:54 DC 02/09/21 20:20 Hydralazine HCl (Apresoline) 25 mg Q6H PO 02/10/21 00:00 02/15/21 05:28 Lidocaine (Lidoderm Patch) 1 patch QHS TD 02/09/21 21:00 02/10/21 09:34 DC 02/09/21 20:20 Lidocaine (Lidoderm Patch) 2 patch DAILY TD 02/11/21 09:00 02/14/21 08:32 Lidocaine/ Diphenhydr/Alum/ Mg/Simeth (Magic Mouthwash) 5ML AC SSP 02/10/21 07:30 02/14/21 18:31 Lisinopril (Prinivil) 20 mg DAILY PO 02/10/21 09:00 02/14/21 10:31 DC 02/14/21 08:31 Lisinopril (Prinivil) 20 mg DAILY@0600 PO 02/15/21 06:00 02/14/21 12:07 DC Lisinopril (Prinivil) 20 mg QHS PO 02/14/21 21:00 02/14/21 21:07 Loperamide HCl (Imodium) 2 mg ASDIRECTED PRN PO DIARRHEA 02/09/21 14:40 Meclizine HCl (Antivert) 50 mg TIDP PRN PO dizziness 02/11/21 08:40 02/14/21 08:30 Non-Formulary Medication ( See Comment Field Below ) REMOVE LIDODERM PATCH DAILY@0900 XX 02/10/21 09:00 02/10/21 13:00 DC 02/10/21 09:06 Non-Formulary Medication ( See Comment Field Below ) REMOVE LIDODERM PATCH DAILY@21 XX 02/11/21 21:00 02/13/21 20:22 Nystatin (Mycostatin) 5 ml TID SSP 02/09/21 21:00 02/14/21 16:01 DC 02/14/21 16:15 Pantoprazole Sodium (Protonix) 40 mg DAILY PO 02/10/21 09:00 02/14/21 08:30 Polyethylene Glycol (Miralax) 1 pkt DAILY PRN PO CONSTIPATION 02/09/21 13:55 02/14/21 08:30 Potassium Chloride (Micro-K Extencaps) 40 meq BID PO 02/11/21 09:00 02/14/21 11:52 DC 02/14/21 08:31 Ramelteon (Rozerem) 8 mg QHS PRN PO INSOMNIA 02/09/21 19:45 02/14/21 21:07 Senna (Senokot) 1 tab QHS PO 02/09/21 21:00 02/09/21 14:41 DC Senna (Senokot) 1 tab QHS PRN PO constipation 02/09/21 21:00 Sodium Chloride 1,000 ml @ 100 mls/hr Q10H IV 02/11/21 19:00 02/12/21 14:59 DC 02/12/21 04:27 Tamsulosin HCl (Flomax) 0.4 mg DAILY@2100 PO 02/09/21 21:00 02/14/21 21:07 JULIETA SURESH MD Feb 15, 2021 09:38
[2021-02-15] MEDS: REMEDY PHYTOPLEX Z-GUARD PASTE 113GM TUBE (FROM STOREROOM PRODUCT) TOP SCH ×3 (09:39→20:23)
[2021-02-15] MEDS: MAGIC MOUTHWASH SUSPENSION BTL SSP SCH ×3 (09:39→18:44)
[2021-02-15 10:00] VITALS: BP 170/98
[2021-02-15 14:00] VITALS: BP 125/75
[2021-02-15 20:00] VITALS: BP 142/88
[2021-02-15] MEDS: ATORVASTATIN 20 MG TAB PO SCH (20:22)
[2021-02-15] MEDS: RAMELTEON 8 MG TAB (ROZEREM) PO PRN (20:22)
[2021-02-15] MEDS: TAMSULOSIN 0.4 MG CAP PO SCH (20:22)
[2021-02-15] MEDS: **NOTE PATIENT COMMENT** MISC XX SCH (20:23)
[2021-02-16] MEDS: **hydrALAZINE HCL** 25 MG TAB PO SCH ×4 (05:46→23:53)
[2021-02-16 06:00] VITALS: BP 146/80
[2021-02-16] MEDS: COMBIVENT RESPIMAT 100-20MCG INHALER 4GM INH SCH ×4 (07:20→19:55)
[2021-02-16] MEDS: MAGIC MOUTHWASH SUSPENSION BTL SSP SCH ×3 (07:30→17:54)
[2021-02-16] MEDS: ASPIRIN 81MG ENTERIC TABLET PO SCH (08:33)
[2021-02-16] MEDS: LIDOCAINE 5% (LIDODERM) PATCH TD SCH ×2 (08:33→09:00)
[2021-02-16] MEDS: guaiFENesin 200 MG TAB PO SCH ×3 (08:33→20:11)
[2021-02-16] MEDS: PANTOPRAZOLE 40MG TAB (PROTONIX) PO SCH (08:34)
[2021-02-16] MEDS: CALCIUM/VITAMIN D 500 MG TAB PO SCH ×2 (08:34→20:10)
[2021-02-16] MEDS: CitaloPRAM (CeleXA) 20 MG TAB PO SCH (08:34)
[2021-02-16] MEDS: APIXABAN 5 MG TAB (ELIQUIS) PO SCH ×2 (08:34→20:10)
[2021-02-16] MEDS: ACETAMINOPHEN 500 MG TAB PO SCH ×3 (08:34→20:10)
[2021-02-16] MEDS: REMEDY PHYTOPLEX Z-GUARD PASTE 113GM TUBE (FROM STOREROOM PRODUCT) TOP SCH ×3 (08:36→20:11)
--- NOTE | 2021-02-16 10:51 | IPNPDOC ---
Text Note Date of Service The patient was seen on 02/16/21. NOTE Pt seen and examined. Continues to participate in therapy PHYSICAL EXAMINATION: GENERAL: Awake, alert, oriented, able to speak in full sentences. HEENT: No nasopharyngeal deviation. Face is asymmetric with right facial drooping. Uvula and tongue both midline. LUNGS: Clear to auscultation. No wheezing, rales or rhonchi. HEART: S1, S2. Irregularly irregular. ABDOMEN: Soft, nontender, nondistended. Positive bowel sounds. EXTREMITIES: No cyanosis or clubbing. NEUROLOGIC: Slight pronator drift on the right upper extremity. No dysmetria on [id number] testing. Right upper extremity 4/5 strength. Bilateral lower extremities 5/5 strength. LABORATORY DATA: Laboratory data, imaging studies: Please see the chart. ASSESSMENT and PLAN: A 65-year-old male with history of hypertension, hyperlipidemia, prior history of smoking, cerebrovascular accident (CVA), noncompliant with medications, admitted after an acute right stevenson radiata lacunar infarction with old bilateral basal ganglia infarctions, complaint of diarrhea and right shoulder pain, admitted to acute rehabilitation services due to new CVA in the setting of old bilateral basal ganglia CVA. 1. Decrease in urine output due to poor oral intake. Improved. Patient got IV fluid trial times 2 liters. The patient has been on lisinopril 20 mg. BMP reviewed, Cr stable. He shows no signs of dehydration or encephalopathy at this time. 2. Acute right stevenson radiata lacunar infarction with old bilateral basal ganglia cerebrovascular accident (CVA) with ataxia. Patient has a new onset of atrial fibrillation and has been placed on Eliquis 5 mg twice a day. He continues to be on aspirin and high-dose statin. 3. New onset atrial fibrillation. Currently on apixaban. Rate controlled 4. Hypertension, currently controlled. Holding parameters placed. On lisinopril, amlo and hydralazine. 5. Hyperlipidemia, chronic. On statin. 6. Depression, chronic. 7. History of medical noncompliance. Not taking his medications for his stroke. Currently compliant while in acute rehabilitation unit (ARU). 8. Chronic right shoulder pain. As needed pain medications. Fall precautions. Activity as tolerated, but assisted ambulation. Continue with physical therapy (PT), occupational therapy (OT). Monitor intake and output, daily weights and urine output. Disposition as per primary. VS,Fishbone, I+O VS, Fishbone, I+O Vital Signs Date Time Temp Pulse Resp B/P (MAP) Pulse Ox O2 Delivery O2 Flow Rate FiO2 02/16/21 06:00 98.1 73 17 146/80 (102) 93 Room Air I&O- Last 24 Hours up to 6 AM 02/16/21 06:00 Intake Total 490 ml Output Total 800 ml Balance -310 ml SARAY DODGE MD Feb 16, 2021 10:51
[2021-02-16 12:05] LABS: ALBUMIN 3.2 GM/DL (3.2-5.2); ALT/SGPT 73 U/L (12-78); BILIRUBIN,TOTAL 0.6 MG/DL (0.2-1.0); BLOOD UREA NITROGEN 14 MG/DL (7-18); CALCIUM LEVEL 8.9 MG/DL (8.8-10.2); CARBON DIOXIDE LEVEL 24 MEQ/L (21-32); CHLORIDE LEVEL 104 MEQ/L (98-107); CREATININE FOR GFR 0.94 MG/DL (0.70-1.30); GLOMERULAR FILTRATION RATE > 60.0 (>49); GLUCOSE, FASTING 107 MG/DL (70-100); SODIUM LEVEL 135 MEQ/L (136-145); TOTAL PROTEIN 6.6 GM/DL (6.4-8.2)
[2021-02-16 14:00] VITALS: BP 115/66
[2021-02-16 20:00] VITALS: BP 132/80
[2021-02-16] MEDS: TAMSULOSIN 0.4 MG CAP PO SCH (20:10)
[2021-02-16] MEDS: ATORVASTATIN 20 MG TAB PO SCH (20:11)
[2021-02-16] MEDS: RAMELTEON 8 MG TAB (ROZEREM) PO PRN (20:11)
[2021-02-16] MEDS: **NOTE PATIENT COMMENT** MISC XX SCH (20:12)
[2021-02-17] MEDS: **hydrALAZINE HCL** 25 MG TAB PO SCH ×3 (05:28→17:57)
[2021-02-17 06:00] VITALS: BP 146/94
[2021-02-17] MEDS: COMBIVENT RESPIMAT 100-20MCG INHALER 4GM INH SCH ×4 (07:13→20:35)
[2021-02-17] MEDS: CitaloPRAM (CeleXA) 20 MG TAB PO SCH (08:39)
[2021-02-17] MEDS: APIXABAN 5 MG TAB (ELIQUIS) PO SCH ×2 (08:39→20:35)
[2021-02-17] MEDS: CALCIUM/VITAMIN D 500 MG TAB PO SCH ×2 (08:39→20:34)
[2021-02-17] MEDS: guaiFENesin 200 MG TAB PO SCH ×3 (08:39→20:34)
[2021-02-17] MEDS: ASPIRIN 81MG ENTERIC TABLET PO SCH (08:40)
[2021-02-17] MEDS: ACETAMINOPHEN 500 MG TAB PO SCH ×3 (08:40→20:35)
[2021-02-17] MEDS: PANTOPRAZOLE 40MG TAB (PROTONIX) PO SCH (08:40)
[2021-02-17] MEDS: MAGIC MOUTHWASH SUSPENSION BTL SSP SCH ×3 (08:40→17:30)
[2021-02-17] MEDS: REMEDY PHYTOPLEX Z-GUARD PASTE 113GM TUBE (FROM STOREROOM PRODUCT) TOP SCH ×3 (08:41→20:35)
[2021-02-17] MEDS: LIDOCAINE 5% (LIDODERM) PATCH TD SCH (08:41)
--- NOTE | 2021-02-17 08:49 | IPNPDOC ---
PM&R Progress Note DATE OF SERVICE: Feb 17, 2021 [employer] Progress Note DATE OF ADMISSION: Feb 09, 2021 at 13:26 DATE OF SERVICE: February 17, 2021 Subjective: 65 YO M pmh HTN, HLD, hx of CVA, depression presented to [facility] 02-02-21 with worsening confusion and recurrent falls. MRI was ordered showing old bilateral basal ganglia infarcts with an acute right stevenson radiata lacunar infarct. He was started on aspirin and statin and had a spinal tap done which ruled out meningitis. The etiology of his stroke was thought to be due to chronic HTN as patient reported non-compliance with BP meds. He had diarrhea and was tested for C diff which was negative. Imaging was also performed on his left knee, pelvis, and sacrum to rule out fractures in setting of recent falls and all were negative, however did show osteopenia. He was evaluated by therapy and found to have mobility and ADL impairments. On admission he had right shoulder pain and decreased ROM and some burning with urination. 02.13.2021 BP elevated 200 systolic prior to morning medications. By the afternoon. It was 116/71. Patient noted he felt as if he was spinning. Speech pathology noted concern over a bedside swallowing evaluation and barium swallow was requested. Orthostatic blood pressures and ongoing blood pressure monitoring requested. 02.14.2021 Patient is better today, less complaint of dizziness, ready to participate in OT self-care activities today. Systolic blood pressure again elevated this morning at 170. Prior to medications. I discussed with nursing, adjusting the timing of dosing to begin earlier in the morning. We will continue to monitor. Orthostatics. He has when necessary meclizine for dizziness. However, suspect is more related to the blood pressure changes and poststroke effects. He cleared the swallowing evaluation. Case discussed with hospitalist team. 02.15.2021 He slept much better last night, blood pressure much improved with splitting the dose, lisinopril, at bedtime, earlier Amlodipine. No dizziness this morning. He is up and participating in therapy, although getting winded very easily. Heart rate and races up over 100 with minimal exertion. BM sluggish, frequent urination. 02.16.2021 Clearer, less dizziness, BP less labile with med changes. Participating in therapies, more motivated. 02.17.2021 Started off with more energy and enthusiasm, however, after short walks of therapy, became very dizzy, returned to the room. Blood sugar checks showed blood sugar 102. He had to void. Overall dizziness is intermittent, without nausea or vomiting. Blood pressures running in the 130s to 140s systolic, fasting sugars in the low 100s. REVIEW OF SYSTEMS: The following is a completed review of systems and has been reviewed. Review of systems otherwise unremarkable. PAIN: Patient notes right shoulder pain EYES: No recent vision changes EARS, NOSE, & THROAT: +dysphagia, cleared swallowing eval CARDIOVASCULAR: Denies chest pain or palpitations PULMONARY: Denies shortness of breath GASTROINTESTINAL: Denies constipation/diarrhea GENITOURINARY: +frequency MUSCULOSKELETAL: generalized weakness NEUROLOGICAL:+right sided paresis HEMATOLOGICAL: denies easy bruising SKIN: denies rash PSYCHIATRIC: Unremarkable All other review of systems found to be negative. PHYSICAL EXAMINATION: VITAL SIGNS: Please see below. GENERAL: Pleasant and cooperative. HEENT: Clear conjunctiva, EOMI, CARDIOVASCULAR: S1,S2 LUNGS: Clear to auscultation bilaterally. No wheezes. No rhonchi ABDOMEN: Soft, nontender, distended. Positive bowel sounds. NEUROLOGICAL: Alert. Sensation grossly intact EXTREMITIES: 4\\5 strength LUE, 4/5 RUE, 5\\5 strength right TA, 4/5 left negative, Homans. LABS: Reviewed. Pertinent findings include 02/16/2021, sodium 135, potassium, blood sugar 107, alkaline phosphatase slightly increasing at 134 FUNCTIONAL STATUS: 7.2.2020 . Continued work on gait with standby assist using front-wheeled walke r, interrupted with episodic dizziness, and need for frequent rest breaks fatigues. 7.t. continues to demonstrate improved activity tolerance and endurance; ambulates 75ft intervals with SBA; also completes 6 steps with SBA as well. Worked on dynamic gait activities with emphasis on obstacle negotiation and tight turns; noting mild difficulty maintaining feet safely within RW when making tight turns; will benefit from continued work. 02.15.2021 Pt without c/o dizziness with transitions this session. Family training being provided and Pt educated on supine ther ex and given paper HEP. Pt remains below baseline, however is motivated to improve and a good rehab candidate, making slow progress. Easily fatigues and requires frequent rest breaks. 02.14.2021 Discussed in TEAM Yesterday Attempted standing therex and short distance ambulation; noting significant SOB with 25ft ambulation; Pt. reporting that "he is beat" and "cannot do anymore". Also noting increased level of assist required as needs Lesli to stand safely at end of session. Returned to supine to assess vital signs as Pt. appearing diaphoretic and with slow reaction to verbal cues and assessment; HR 88bpm; SpO2 96% and BP 132/78mmHg. [id number] swallowing study There is no evidence of penetration or aspiration 02.11.2021 MRI Brain There is no evidence of intracranial mass or hemorrhage. However, T2 weighted scans and diffusion-weighted images demonstrate acute ischemia pattern in several areas. These include the left frontal periventricular region and bilaterally in the posterior frontal periventricular stevenson radiata region. There is restricted diffusion in the left thalamus with some linear area of restricted diffusion coursing along the left cerebral peduncle. There are small vessel changes and there is minimal generalized volume loss 02.10.2021 Shoulder xray The right glenohumeral and acromioclavicular joints are normally aligned. 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 Osteoarthritic hypertrophy and narrowing is seen at the AC joint as well. Periarticular soft tissues are unremarkable. The visualized right hemithorax appears intact ASSESSMENT: CVA.-old bilateral basal ganglia infarcts with an acute right stevenson radiata lacunar infarct Hypertension. Osteopenia. Vertigo. HLD Right shoulder girdle pain/OA changes 65-year-old M with past medical history of CVA, HTN who presents status post new left coronoa radiata infarct , recent episode of dizziness associated with labile blood pressure, possible orthostatic hypotension, OA right shoulder girdle, no evidence aspiration on swallowing study. Is a tendency towards hypoglycemia, possibly related to PLAN: 1. rehab- PT/OT advance mobility and ADLs, strengthen/stretch/maintain ROM all 4 limbs -[employer] for cog and feeding supervision. 2. Neuro- hx of multiple bilateral strokes, now with left stevenson radiata in farct- c/u ASA and statin for secondary stroke prevention -on celexa 3. Cardiac-Labile HTN c/u BP meds and adjustment timing and dosing appreciate hospitalist input with shift Lisinopril to PM, Amlodipine earlier in AM for better 24hr coverage, seems to have minimized orthostatic symptoms/changes. LAM hose to continue. Continue close monitoring as he continues to have orthostatic changes and heart rate/recovery issues. -monitor for signs of CHF, daily weights, better I&O. 90 KG slightly diminished now. -medicine consulted to assist in overall management 4. Resp- patient cough improving, WBC stable,c/u combivent and guaifenesin 5. - patient reporting frequency and dysuria- last UA pos hematuria, negative for infection encourage fluids, will recheck 6. DVT ppx- heparin 7. Pain- right shoulder pain consistent with OA given pain with external rotation, trial lidoderm patch, X-ray negative for fracture/subluxation 8. GI ppx- protonix -c/u imodium prn loose stools given recent hx of diarrhea (C diff negative) 9. Dispo- tbd TIME SPENT: Chart Review, examination and documentation [30] minutes. Allergies Coded Allergies: lactose (Verified Allergy, Unknown, INTOLERANCE, 02/09/21) Vital Signs Vital Signs Date Time Temp Pulse Resp B/P (MAP) Pulse Ox O2 Delivery O2 Flow Rate FiO2 02/17/21 06:00 97.9 70 17 146/94 (111) 93 Room Air Laboratory Data CBC/BMP Laboratory Tests 02/16/21 11:09 Labs 24H Laboratory Tests 2 02/16/21 11:09: Anion Gap 7L, Glomerular Filtration Rate > 60.0, Calcium Level 8.9, Total Bilirubin 0.6, Aspartate Amino Transf (AST/SGOT) 36, Alanine Aminotransferase (ALT/SGPT) 73, Alkaline Phosphatase 134H, Total Protein 6.6, Albumin 3.2, Albumin/Globulin Ratio 0.9 02/17/21 07:53: Bedside Glucose (Misc Panel) 105 Current Medications Current Medications Current Medications Medications (Trade) Dose Ordered Sig/Wallace Route PRN Reason Start Time Stop Time Status Last Admin Dose Admin Acetaminophen (Tylenol Tab) 650 mg Q4HP PRN PO fever/MILD PAIN (PS 1-4) 02/09/21 13:55 02/09/21 18:58 DC 02/09/21 18:41 Acetaminophen (Tylenol Tab) 1,000 mg TID PO 02/09/21 21:00 02/17/21 08:40 Albuterol/ Ipratropium (Combivent Respimat 100-20mcg) 1 puff RQID INH 02/09/21 20:00 02/17/21 07:13 Amlodipine Besylate (Norvasc) 10 mg DAILY PO 02/10/21 09:00 02/14/21 12:07 DC 02/14/21 08:31 Amlodipine Besylate (Norvasc) 10 mg DAILY@0600 PO 02/15/21 06:00 02/17/21 05:28 Apixaban (Eliquis) 5 mg BID PO 02/10/21 21:00 02/17/21 08:39 Aspirin (Ecotrin) 81 mg DAILY PO 02/10/21 09:00 02/17/21 08:40 Atorvastatin Calcium (Lipitor) 80 mg QHS PO 02/09/21 21:00 02/16/21 20:11 Bisacodyl (Dulcolax Suppository) 10 mg DAILYPRN PRN [place] CONSTIPATION 02/09/21 13:55 Calcium/Vitamin D (Oscal D) 500 mg BID PO 02/09/21 21:00 02/17/21 08:39 Citalopram Hydrobromide (CeleXA) 20 mg DAILY PO 02/10/21 09:00 02/17/21 08:39 Docusate Sodium (Colace) 100 mg BID PO 02/09/21 21:00 02/09/21 14:41 DC Docusate Sodium (Colace) 100 mg BID PRN PO constipation 02/09/21 21:00 02/14/21 08:30 Guaifenesin (Robitussin Tab) 400 mg TID PO 02/09/21 21:00 02/17/21 08:39 Heparin Sodium (Porcine) (Heparin) 5,000 units Q12H SC 02/10/21 09:00 02/10/21 23:39 DC 02/10/21 20:56 Home Med (Med Rec Complete!) ASDIRECTED XX 02/09/21 15:25 02/09/21 15:38 DC Hydralazine HCl (Apresoline) 12.5 mg Q6H PRN PO sBP >140 or dBP >90 02/09/21 13:55 02/09/21 21:54 DC 02/09/21 20:20 Hydralazine HCl (Apresoline) 25 mg Q6H PO 02/10/21 00:00 02/17/21 05:28 Lidocaine (Lidoderm Patch) 1 patch QHS TD 02/09/21 21:00 02/10/21 09:34 DC 02/09/21 20:20 Lidocaine (Lidoderm Patch) 2 patch DAILY TD 02/11/21 09:00 02/15/21 09:38 Lidocaine/ Diphenhydr/Alum/ Mg/Simeth (Magic Mouthwash) 5ML AC SSP 02/10/21 07:30 02/17/21 08:40 Lisinopril (Prinivil) 20 mg DAILY PO 02/10/21 09:00 02/14/21 10:31 DC 02/14/21 08:31 Lisinopril (Prinivil) 20 mg DAILY@0600 PO 02/15/21 06:00 02/14/21 12:07 DC Lisinopril (Prinivil) 20 mg QHS PO 02/14/21 21:00 02/16/21 20:11 Loperamide HCl (Imodium) 2 mg ASDIRECTED PRN PO DIARRHEA 02/09/21 14:40 Meclizine HCl (Antivert) 50 mg TIDP PRN PO dizziness 02/11/21 08:40 02/15/21 09:38 Non-Formulary Medication ( See Comment Field Below ) REMOVE LIDODERM PATCH DAILY@0900 XX 02/10/21 09:00 02/10/21 13:00 DC 02/10/21 09:06 Non-Formulary Medication ( See Comment Field Below ) REMOVE LIDODERM PATCH DAILY@21 XX 02/11/21 21:00 02/15/21 20:23 Nystatin (Mycostatin) 5 ml TID SSP 02/09/21 21:00 02/14/21 16:01 DC 02/14/21 16:15 Pantoprazole Sodium (Protonix) 40 mg DAILY PO 02/10/21 09:00 02/17/21 08:40 Polyethylene Glycol (Miralax) 1 pkt DAILY PRN PO CONSTIPATION 02/09/21 13:55 02/14/21 08:30 Potassium Chloride (Micro-K Extencaps) 40 meq BID PO 02/11/21 09:00 02/14/21 11:52 DC 02/14/21 08:31 Ramelteon (Rozerem) 8 mg QHS PRN PO INSOMNIA 02/09/21 19:45 02/16/21 20:11 Senna (Senokot) 1 tab QHS PO 02/09/21 21:00 02/09/21 14:41 DC Senna (Senokot) 1 tab QHS PRN PO constipation 02/09/21 21:00 Sodium Chloride 1,000 ml @ 100 mls/hr Q10H IV 02/11/21 19:00 02/12/21 14:59 DC 02/12/21 04:27 Tamsulosin HCl (Flomax) 0.4 mg DAILY@2100 PO 02/09/21 21:00 02/16/21 20:10 JULIETA SURESH MD Feb 17, 2021 08:49
[2021-02-17 14:00] VITALS: BP 117/67
[2021-02-17] MEDS: ATORVASTATIN 20 MG TAB PO SCH (20:35)
[2021-02-17] MEDS: TAMSULOSIN 0.4 MG CAP PO SCH (20:35)
[2021-02-17] MEDS: **NOTE PATIENT COMMENT** MISC XX SCH (20:36)
[2021-02-17] MEDS: RAMELTEON 8 MG TAB (ROZEREM) PO PRN (20:41)
[2021-02-17 22:00] VITALS: BP 136/78
[2021-02-18] MEDS: **hydrALAZINE HCL** 25 MG TAB PO SCH ×5 (00:12→23:57)
[2021-02-18 05:50] VITALS: BP 135/70
[2021-02-18] MEDS: COMBIVENT RESPIMAT 100-20MCG INHALER 4GM INH SCH ×4 (07:16→20:44)
[2021-02-18] MEDS: LIDOCAINE 5% (LIDODERM) PATCH TD SCH ×2 (08:12→08:19)
[2021-02-18] MEDS: APIXABAN 5 MG TAB (ELIQUIS) PO SCH ×2 (08:13→20:37)
[2021-02-18] MEDS: CALCIUM/VITAMIN D 500 MG TAB PO SCH ×2 (08:13→20:37)
[2021-02-18] MEDS: PANTOPRAZOLE 40MG TAB (PROTONIX) PO SCH (08:13)
[2021-02-18] MEDS: ASPIRIN 81MG ENTERIC TABLET PO SCH (08:13)
[2021-02-18] MEDS: CitaloPRAM (CeleXA) 20 MG TAB PO SCH (08:13)
[2021-02-18] MEDS: ACETAMINOPHEN 500 MG TAB PO SCH ×3 (08:13→20:38)
[2021-02-18] MEDS: MECLIZINE 25 MG TABLET PO PRN (08:13)
[2021-02-18] MEDS: guaiFENesin 200 MG TAB PO SCH ×3 (08:13→20:37)
[2021-02-18] MEDS: REMEDY PHYTOPLEX Z-GUARD PASTE 113GM TUBE (FROM STOREROOM PRODUCT) TOP SCH ×3 (08:14→22:06)
[2021-02-18] MEDS: MAGIC MOUTHWASH SUSPENSION BTL SSP SCH ×3 (08:14→17:41)
[2021-02-18 10:48] VITALS: BP 118/68
[2021-02-18] MEDS: DOCUSATE SODIUM 100MG CAPSULE PO PRN (11:20)
[2021-02-18] MEDS: MIRALAX *UNIT DOSE* 17GM PACKET PO PRN (11:20)
[2021-02-18] MEDS: SCOPOLAMINE 1MG TRANSDERMAL PATCH TOP SCH (13:42)
[2021-02-18 14:00] VITALS: BP 118/66
[2021-02-18 20:00] VITALS: BP 115/57
[2021-02-18] MEDS: TAMSULOSIN 0.4 MG CAP PO SCH (20:37)
[2021-02-18] MEDS: ATORVASTATIN 20 MG TAB PO SCH (20:38)
[2021-02-18] MEDS: **NOTE PATIENT COMMENT** MISC XX SCH (20:38)
[2021-02-18] MEDS: RAMELTEON 8 MG TAB (ROZEREM) PO PRN (20:43)
[2021-02-19 05:02] VITALS: BP 125/59
[2021-02-19] MEDS: **hydrALAZINE HCL** 25 MG TAB PO SCH ×3 (06:25→17:38)
[2021-02-19 07:24] LABS: HEMATOCRIT 37.7 % (42.0-52.0); HEMOGLOBIN 12.2 g/dl (13.5-17.5); MEAN CORPUSCULAR HEMOGLOBIN 29.3 pg (27.0-33.0); MEAN CORPUSCULAR HGB CONC 32.4 g/dl (32.0-36.5); MEAN CORPUSCULAR VOLUME 90.4 fl (80.0-96.0); PLATELET COUNT, AUTOMATED 342 10^3/uL (150-450); RED BLOOD COUNT 4.17 10^6/uL (4.30-6.10); WHITE BLOOD COUNT 5.9 10^3/uL (4.0-10.0)
[2021-02-19] MEDS: COMBIVENT RESPIMAT 100-20MCG INHALER 4GM INH SCH ×4 (07:30→20:17)
[2021-02-19 07:48] LABS: ALBUMIN 3.2 GM/DL (3.2-5.2); ALT/SGPT 48 U/L (12-78); BILIRUBIN,TOTAL 0.6 MG/DL (0.2-1.0); BLOOD UREA NITROGEN 18 MG/DL (7-18); CALCIUM LEVEL 9.1 MG/DL (8.8-10.2); CARBON DIOXIDE LEVEL 27 MEQ/L (21-32); CHLORIDE LEVEL 105 MEQ/L (98-107); CREATININE FOR GFR 0.97 MG/DL (0.70-1.30); GLOMERULAR FILTRATION RATE > 60.0 (>49); GLUCOSE, FASTING 93 MG/DL (70-100); POTASSIUM SERUM 4.5 MEQ/L (3.5-5.1); SODIUM LEVEL 138 MEQ/L (136-145); TOTAL PROTEIN 6.2 GM/DL (6.4-8.2)
[2021-02-19] MEDS: MAGIC MOUTHWASH SUSPENSION BTL SSP SCH ×3 (08:44→17:37)
[2021-02-19] MEDS: CitaloPRAM (CeleXA) 20 MG TAB PO SCH (08:45)
[2021-02-19] MEDS: guaiFENesin 200 MG TAB PO SCH ×3 (08:45→20:35)
[2021-02-19] MEDS: CALCIUM/VITAMIN D 500 MG TAB PO SCH ×2 (08:45→20:36)
[2021-02-19] MEDS: ASPIRIN 81MG ENTERIC TABLET PO SCH (08:45)
[2021-02-19] MEDS: DOCUSATE SODIUM 100MG CAPSULE PO PRN ×2 (08:45→20:36)
[2021-02-19] MEDS: PANTOPRAZOLE 40MG TAB (PROTONIX) PO SCH (08:45)
[2021-02-19] MEDS: APIXABAN 5 MG TAB (ELIQUIS) PO SCH ×2 (08:45→20:36)
[2021-02-19] MEDS: MECLIZINE 25 MG TABLET PO PRN ×2 (08:45→20:36)
[2021-02-19] MEDS: MIRALAX *UNIT DOSE* 17GM PACKET PO PRN (08:45)
[2021-02-19] MEDS: REMEDY PHYTOPLEX Z-GUARD PASTE 113GM TUBE (FROM STOREROOM PRODUCT) TOP SCH ×3 (08:46→20:37)
[2021-02-19] MEDS: LIDOCAINE 5% (LIDODERM) PATCH TD SCH (08:46)
[2021-02-19] MEDS: ACETAMINOPHEN 500 MG TAB PO SCH ×3 (08:46→20:36)
[2021-02-19 14:30] VITALS: BP 131/70
[2021-02-19 20:21] VITALS: BP 126/74
[2021-02-19] MEDS: RAMELTEON 8 MG TAB (ROZEREM) PO PRN (20:35)
[2021-02-19] MEDS: TAMSULOSIN 0.4 MG CAP PO SCH (20:35)
[2021-02-19] MEDS: ATORVASTATIN 20 MG TAB PO SCH (20:36)
[2021-02-19] MEDS: **NOTE PATIENT COMMENT** MISC XX SCH (20:37)
[2021-02-20] MEDS: **hydrALAZINE HCL** 25 MG TAB PO SCH ×5 (00:18→23:11)
[2021-02-20 06:00] VITALS: BP 123/67
[2021-02-20] MEDS: COMBIVENT RESPIMAT 100-20MCG INHALER 4GM INH SCH ×4 (07:17→19:30)
[2021-02-20] MEDS: MIRALAX *UNIT DOSE* 17GM PACKET PO PRN (07:37)
[2021-02-20] MEDS: CitaloPRAM (CeleXA) 20 MG TAB PO SCH (07:37)
[2021-02-20] MEDS: DOCUSATE SODIUM 100MG CAPSULE PO PRN (07:37)
[2021-02-20] MEDS: CALCIUM/VITAMIN D 500 MG TAB PO SCH ×2 (07:37→20:28)
[2021-02-20] MEDS: PANTOPRAZOLE 40MG TAB (PROTONIX) PO SCH (07:37)
[2021-02-20] MEDS: LIDOCAINE 5% (LIDODERM) PATCH TD SCH (07:38)
[2021-02-20] MEDS: ASPIRIN 81MG ENTERIC TABLET PO SCH (07:38)
[2021-02-20] MEDS: APIXABAN 5 MG TAB (ELIQUIS) PO SCH ×2 (07:38→20:28)
[2021-02-20] MEDS: ACETAMINOPHEN 500 MG TAB PO SCH ×3 (07:38→20:28)
[2021-02-20] MEDS: guaiFENesin 200 MG TAB PO SCH ×3 (07:38→20:28)
[2021-02-20] MEDS: MAGIC MOUTHWASH SUSPENSION BTL SSP SCH ×3 (07:38→17:57)
[2021-02-20] MEDS: REMEDY PHYTOPLEX Z-GUARD PASTE 113GM TUBE (FROM STOREROOM PRODUCT) TOP SCH ×3 (07:39→20:29)
--- NOTE | 2021-02-20 12:16 | IPNPDOC ---
Text Note Date of Service The patient was seen on 02/20/21. NOTE Pt seen and examined. Continues to participate in therapy PHYSICAL EXAMINATION: GENERAL: Awake, alert, oriented, able to speak in full sentences. HEENT: No nasopharyngeal deviation. Face is asymmetric with right facial drooping. Uvula and tongue both midline. LUNGS: Clear to auscultation. No wheezing, rales or rhonchi. HEART: S1, S2. Irregularly irregular. ABDOMEN: Soft, nontender, nondistended. Positive bowel sounds. EXTREMITIES: No cyanosis or clubbing. NEUROLOGIC: Slight pronator drift on the right upper extremity. No dysmetria on [id number] testing. Right upper extremity 4/5 strength. Bilateral lower extremities 5/5 strength. LABORATORY DATA: Laboratory data, imaging studies: Please see the chart. ASSESSMENT and PLAN: A 65-year-old male with history of hypertension, hyperlipidemia, prior history of smoking, cerebrovascular accident (CVA), noncompliant with medications, admitted after an acute right stevenson radiata lacunar infarction with old bilateral basal ganglia infarctions, complaint of diarrhea and right shoulder pain, admitted to acute rehabilitation services due to new CVA in the setting of old bilateral basal ganglia CVA. 1. Acute right stevenson radiata lacunar infarction with old bilateral basal ganglia cerebrovascular accident (CVA) with ataxia. Patient has a new onset of atrial fibrillation and has been placed on Eliquis 5 mg twice a day. He continues to be on aspirin and high-dose statin. 2. Decrease in urine output due to poor oral intake. Improved. Patient got IV fluid trial times 2 liters. The patient has been on lisinopril 20 mg. BMP reviewed, Cr stable. He shows no signs of dehydration or encephalopathy at this time. 3. New onset atrial fibrillation. Currently on apixaban. Rate controlled 4. Hypertension, currently controlled. Holding parameters placed. On lisinopril, amlo and hydralazine. 5. Hyperlipidemia, chronic. On statin. 6. Depression, chronic. 7. History of medical noncompliance. Not taking his medications for his stroke. Currently compliant while in acute rehabilitation unit (ARU). 8. Chronic right shoulder pain. As needed pain medications. Fall precautions. Activity as tolerated, but assisted ambulation. Continue with physical therapy (PT), occupational therapy (OT). Monitor intake and output, daily weights and urine output. Disposition as per primary. VS,Fishbone, I+O VS, Fishbone, I+O Vital Signs Date Time Temp Pulse Resp B/P (MAP) Pulse Ox O2 Delivery O2 Flow Rate FiO2 02/20/21 12:00 119/69 02/20/21 06:00 98.2 72 18 95 Room Air I&O- Last 24 Hours up to 6 AM 02/20/21 05:59 Intake Total 1300 ml Output Total 825 ml Balance 475 ml SARAY DODGE MD Feb 20, 2021 12:16
[2021-02-20 14:00] VITALS: BP 115/67
[2021-02-20 19:56] VITALS: BP 116/71
[2021-02-20] MEDS: ATORVASTATIN 20 MG TAB PO SCH (20:28)
[2021-02-20] MEDS: TAMSULOSIN 0.4 MG CAP PO SCH (20:29)
[2021-02-20] MEDS: **NOTE PATIENT COMMENT** MISC XX SCH ×2 (20:30→20:34)
[2021-02-20] MEDS: RAMELTEON 8 MG TAB (ROZEREM) PO PRN (22:01)
[2021-02-21 05:58] VITALS: BP 117/72
[2021-02-21] MEDS: **hydrALAZINE HCL** 25 MG TAB PO SCH ×3 (05:59→20:17)
[2021-02-21] MEDS: COMBIVENT RESPIMAT 100-20MCG INHALER 4GM INH SCH ×4 (07:17→20:12)
[2021-02-21] MEDS: MAGIC MOUTHWASH SUSPENSION BTL SSP SCH ×3 (08:48→16:23)
[2021-02-21] MEDS: MIRALAX *UNIT DOSE* 17GM PACKET PO PRN (08:48)
[2021-02-21] MEDS: guaiFENesin 200 MG TAB PO SCH ×3 (08:49→20:17)
[2021-02-21] MEDS: CALCIUM/VITAMIN D 500 MG TAB PO SCH ×2 (08:49→20:18)
[2021-02-21] MEDS: ACETAMINOPHEN 500 MG TAB PO SCH ×3 (08:49→20:18)
[2021-02-21] MEDS: CitaloPRAM (CeleXA) 20 MG TAB PO SCH (08:49)
[2021-02-21] MEDS: ASPIRIN 81MG ENTERIC TABLET PO SCH (08:49)
[2021-02-21] MEDS: APIXABAN 5 MG TAB (ELIQUIS) PO SCH ×2 (08:49→20:17)
[2021-02-21] MEDS: PANTOPRAZOLE 40MG TAB (PROTONIX) PO SCH (08:49)
[2021-02-21] MEDS: LIDOCAINE 5% (LIDODERM) PATCH TD SCH (08:49)
[2021-02-21] MEDS: REMEDY PHYTOPLEX Z-GUARD PASTE 113GM TUBE (FROM STOREROOM PRODUCT) TOP SCH ×3 (08:49→20:19)
[2021-02-21] MEDS: DOCUSATE SODIUM 100MG CAPSULE PO PRN ×2 (08:49→20:18)
[2021-02-21] MEDS: SCOPOLAMINE 1MG TRANSDERMAL PATCH TOP SCH (12:38)
[2021-02-21 14:00] VITALS: BP 133/74
--- NOTE | 2021-02-21 14:41 | IPNPDOC ---
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 MRI was ordered showing old bi lateral basal ganglia infarcts with an acute right stevenson radiata lacunar infarct. He was started on aspirin and statin and had a spinal tap done which ruled out meningitis. The etiology of his stroke was thought to be due to chronic HTN as patient reported non-compliance with BP meds. He had diarrhea and was tested for C diff which was negative. Imaging was also performed on his left knee, pelvis, and sacrum to rule out fractures in setting of recent falls and all were negative, however did show osteopenia. He was evaluated by therapy and found to have mobility and ADL impairments. On admission he had right shoulder pain and decreased ROM and some burning with urination. 02.13.2021 BP elevated 200 systolic prior to morning medications. By the afternoon. It was 116/71. Patient noted he felt as if he was spinning. Speech pathology noted concern over a bedside swallowing evaluation and barium swallow was requested. Orthostatic blood pressures and ongoing blood pressure monitoring requested. 02.14.2021 Patient is better today, less complaint of dizziness, ready to participate in OT self-care activities today. Systolic blood pressure again elevated this morning at 170. Prior to medications. I discussed with nursing, adjusting the timing of dosing to begin earlier in the morning. We will continue to monitor. Orthostatics. He has when necessary meclizine for dizziness. However, suspect is more related to the blood pressure changes and poststroke effects. He cleared the swallowing evaluation. Case discussed with hospitalist team. 02.15.2021 He slept much better last night, blood pressure much improved with splitting the dose, lisinopril, at bedtime, earlier Amlodipine. No dizziness this morning. He is up and participating in therapy, although getting winded very easily. Heart rate and races up over 100 with minimal exertion. BM sluggish, frequent urination. 02.16.2021 Clearer, less dizziness, BP less labile with med changes. Participating in therapies, more motivated. 02.17.2021 Started off with more energy and enthusiasm, however, after short walks of therapy, became very dizzy, returned to the room. Blood sugar checks showed blood sugar 12. He had to void. Overall dizziness is intermittent, without nausea or vomiting. Blood pressures running in the 130s to 140s systolic, f asting sugars in the low 100s. Tight control. 02/21/2021 Doing much better, dizziness is abating, sleeping better and participating well in therapy. REVIEW OF SYSTEMS: The following is a completed review of systems and has been reviewed. Review of systems otherwise unremarkable. PAIN: Patient notes right shoulder pain EYES: No recent vision changes EARS, NOSE, & THROAT: +dysphagia, cleared swallowing eval CARDIOVASCULAR: Denies chest pain or palpitations PULMONARY: Denies shortness of breath GASTROINTESTINAL: Denies constipation/diarrhea GENITOURINARY: +frequency MUSCULOSKELETAL: generalized weakness NEUROLOGICAL:+right sided paresis improving HEMATOLOGICAL: denies easy bruising SKIN: denies rash PSYCHIATRIC: Unremarkable All other review of systems found to be negative. PHYSICAL EXAMINATION: VITAL SIGNS: Please see below. GENERAL: Pleasant and cooperative. HEENT: Clear conjunctiva, EOMI, no nystagmus, no adenopathy, face symmetric CARDIOVASCULAR: S1,S2 LUNGS: Clear to auscultation bilaterally. No wheezes. No rhonchi ABDOMEN: Soft, nontender, distended. Positive bowel sounds. NEUROLOGICAL: Alert. Sensation grossly intact EXTREMITIES: 5\\5 strength LUE, 5-/5 RUE, 5\\5 strength right TA, 5/5 left negative Homans. LABS: Reviewed. Pertinent findings include 02/16/2021, sodium 135, potassium, blood sugar 107, alkaline phosphatase slightly increasing at 134 FUNCTIONAL STATUS: 7.6.2020 Patient discussed at length in Team conference Pt agreeable to shower today; retrieved clothing and towels/washclothes prior to ADL. Placed commode over pts toilet to simulate toilet transfers at home as he does not have GBs around his toilet and he relies on the GBs for safety; pt able to demonstrate safe transfers when reaching back for hand rails on commode. Pt mod I for dressing tasks with use of flat examiner to assist in doffing vick socks. SBA for shower transfer with attempt for pt to not use GB as he currently does not have GB's in his shower. Pt relied on GB's for increased safety throughout shower; education on potentional need of shower chair if pt is unable to put GB's in shower, otherwise mod I when sitting in shower chair. Will contact daughter to update her on showers at this time. Pt agreeable to shower chair for increased safety at this time. Pt also required to sit at the end of his shower due to fatigue as he stood for the whole shower. He was able to bathe mod I with long handled sponge for vick LE's and while holding onto GB's for the remainder of his UB/LB. Pt required increased time to complete all tasks as he reported needing to try to have a BM several times throughout all tasks limiting ability to continue to progress functional endurance throughout all tasks . . Continued work on gait with standby assist using front-wheeled walker, interrupted with episodic dizziness, and need for frequent rest breaks fatigues. 02.16.2021t. continues to demonstrate improved activity tolerance and endurance; ambulates 75ft intervals with SBA; also completes 6 steps with SBA as well. Worked on dynamic gait activities with emphasis on obstacle negotiation and tight turns; noting mild difficulty maintaining feet safely within RW when making tight turns;. 02.15.2021 Pt without c/o dizziness with transitions this session. Family training being provided and Pt educated on supine ther ex and given paper HEP. Pt remains below baseline, however is motivated to improve and a good rehab candidate, making slow progress. Easily fatigues and requires frequent rest breaks. 02.14.2021 Discussed in TEAM Yesterday Attempted standing therex and short distance ambulation; noting significant SOB with 25ft ambulation; Pt. reporting that "he is beat" and "cannot do anymore". Also noting increased level of assist required as needs Lesli to stand safely at end of session. Returned to supine to assess vital signs as Pt. appearing diaphoretic and with slow reaction to verbal cues and assessment; HR 88bpm; SpO2 96% and BP 132/78mmHg. IMAGIN02.13.2021 swallowing study There is no evidence of penetration or aspiration 02.11.2021 MRI Brain There is no evidence of intracranial mass or hemorrhage. However, T2 weighted scans and diffusion-weighted images demonstrate acute ischemia pattern in several areas. These include the left frontal periventricular region and bilaterally in the posterior frontal periventricular stevenson radiata region. There is restricted diffusion in the left thalamus with some linear area of restricted diffusion coursing along the left cerebral peduncle. There are small vessel changes and there is minimal generalized volume loss 6.25.2020 Shoulder xray The right glenohumeral and acromioclavicular joints are normally aligned. 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 Osteoarthritic hypertrophy and narrowing is seen at the AC joint as well. Periarticular soft tissues are unremarkable. The visualized right hemithorax appears intact ASSESSMENT: CVA. Hypertension. Osteopenia. Vertigo. HLD 65-year-old M with past medical history of CVA, HTN who presents status post new left stevenson radiata infarct , recent episode of dizziness associated with labile blood pressure, possible orthostatic hypotension, OA right shoulder girdle, no evidence aspiration on swallowing study. PLAN: 1. rehab- PT/OT advance mobility and ADLs, strengthen/stretch/maintain ROM all 4 limbs -CASH POSTING SPECIALIST for cog and feeding supervision. 2. Neuro- hx of multiple bilateral strokes, now with left stevenson radiata infarct- c/u ASA and statin for secondary stroke prevention -on celexa - Dizziness improving, mobility stabilizing 3. Cardiac-Labile HTN c/u BP meds and adjustment timing and dosing appreciate hospitalist input with shift Lisinopril to PM, Amlodipine earlier in AM for better 24hr coverage, seems to have minimized orthostatic symptoms/changes. LAM hose to continue. Continue close monitoring as he continues to have orthostatic changes and heart rate/recovery issues, however improving this week over last week. -monitor for signs of CHF, daily weights, better I&O. 90 KG slightly diminished now. -medicine consulted to assist in overall management 4. Resp- patient cough improving, WBC stable,c/u combivent and guaifenesin 5. - patient reporting frequency and dysuria- last UA pos hematuria, negative for infection encourage fluids, will recheck 6. DVT ppx- heparin 7. Pain- right shoulder pain consistent with OA given pain with external rotation, trial lidoderm patch, X-ray negative for fracture/subluxation 8. GI ppx- protonix, bowels stabilizing 9. Dispo- tbd TIME SPENT: Chart Review, examination and documentation [30] minutes. Allergies Coded Allergies: lactose (Verified Allergy, Unknown, INTOLERANCE, 02/09/21) Vital Signs Vital Signs Date Time Temp Pulse Resp B/P (MAP) Pulse Ox O2 Delivery O2 Flow Rate FiO2 02/21/21 14:00 98.6 86 18 133/74 (93) 96 Room Air Current Medications Current Medications Current Medications Medications (Trade) Dose Ordered Sig/Wallace Route PRN Reason Start Time Stop Time Status Last Admin Dose Admin Acetaminophen (Tylenol Tab) 650 mg Q4HP PRN PO fever/MILD PAIN (PS 1-4) 02/09/21 13:55 02/09/21 18:58 DC 02/09/21 18:41 Acetaminophen (Tylenol Tab) 1,000 mg TID PO 02/09/21 21:00 02/21/21 08:49 Albuterol/ Ipratropium (Combivent Respimat 100-20mcg) 1 puff RQID INH 02/09/21 20:00 02/21/21 07:17 Amlodipine Besylate (Norvasc) 10 mg DAILY PO 02/10/21 09:00 02/14/21 12:07 DC 02/14/21 08:31 Amlodipine Besylate (Norvasc) 10 mg DAILY@0600 PO 02/15/21 06:00 02/21/21 06:02 Apixaban (Eliquis) 5 mg BID PO 02/10/21 21:00 02/21/21 08:49 Aspirin (Ecotrin) 81 mg DAILY PO 02/10/21 09:00 02/21/21 08:49 Atorvastatin Calcium (Lipitor) 80 mg QHS PO 02/09/21 21:00 02/20/21 20:28 Bisacodyl (Dulcolax Suppository) 10 mg DAILYPRN PRN MD CONSTIPATION 02/09/21 13:55 Calcium/Vitamin D (Oscal D) 500 mg BID PO 02/09/21 21:00 02/21/21 08:49 Citalopram Hydrobromide (CeleXA) 20 mg DAILY PO 02/10/21 09:00 02/21/21 08:49 Docusate Sodium (Colace) 100 mg BID PO 02/09/21 21:00 02/09/21 14:41 DC Docusate Sodium (Colace) 100 mg BID PRN PO constipation 02/09/21 21:00 02/21/21 08:49 Guaifenesin (Robitussin Tab) 400 mg TID PO 02/09/21 21:00 02/21/21 08:49 Heparin Sodium (Porcine) (Heparin) 5,000 units Q12H SC 02/10/21 09:00 02/10/21 23:39 DC 02/10/21 20:56 Home Med (Med Rec Complete!) ASDIRECTED XX 02/09/21 15:25 02/09/21 15:38 DC Hydralazine HCl (Apresoline) 12.5 mg Q6H PRN PO sBP >140 or dBP >90 02/09/21 13:55 02/09/21 21:54 DC 02/09/21 20:20 Hydralazine HCl (Apresoline) 25 mg BID PO 02/21/21 09:00 Hydralazine HCl (Apresoline) 25 mg Q6H PO 02/10/21 00:00 02/21/21 08:01 DC 02/20/21 05:35 Lidocaine (Lidoderm Patch) 1 patch QHS TD 02/09/21 21:00 02/10/21 09:34 DC 02/09/21 20:20 Lidocaine (Lidoderm Patch) 2 patch DAILY TD 02/11/21 09:00 02/15/21 09:38 Lidocaine/ Diphenhydr/Alum/ Mg/Simeth (Magic Mouthwash) 5ML AC SSP 02/10/21 07:30 02/21/21 12:38 Lisinopril (Prinivil) 20 mg DAILY PO 02/10/21 09:00 02/14/21 10:31 DC 02/14/21 08:31 Lisinopril (Prinivil) 20 mg DAILY@0600 PO 02/15/21 06:00 02/14/21 12:07 DC Lisinopril (Prinivil) 20 mg QHS PO 02/14/21 21:00 02/20/21 20:29 Loperamide HCl (Imodium) 2 mg ASDIRECTED PRN PO DIARRHEA 02/09/21 14:40 Meclizine HCl (Antivert) 50 mg TIDP PRN PO dizziness 02/11/21 08:40 02/19/21 20:36 Non-Formulary Medication ( See Comment Field Below ) REMOVE LIDODERM PATCH DAILY@0900 XX 02/10/21 09:00 02/10/21 13:00 DC 02/10/21 09:06 Non-Formulary Medication ( See Comment Field Below ) REMOVE LIDODERM PATCH DAILY@21 XX 02/11/21 21:00 02/19/21 20:37 Nystatin (Mycostatin) 5 ml TID SSP 02/09/21 21:00 02/14/21 16:01 DC 02/14/21 16:15 Pantoprazole Sodium (Protonix) 40 mg DAILY PO 02/10/21 09:00 02/21/21 08:49 Polyethylene Glycol (Miralax) 1 pkt DAILY PRN PO CONSTIPATION 02/09/21 13:55 02/21/21 08:48 Potassium Chloride (Micro-K Extencaps) 40 meq BID PO 02/11/21 09:00 02/14/21 11:52 DC 02/14/21 08:31 Ramelteon (Rozerem) 8 mg QHS PRN PO INSOMNIA 02/09/21 19:45 02/20/21 22:01 Scopolamine (Scopolamine) 1 mg Q72H TOP 02/18/21 13:00 02/21/21 12:38 Senna (Senokot) 1 tab QHS PO 02/09/21 21:00 02/09/21 14:41 DC Senna (Senokot) 1 tab QHS PRN PO constipation 02/09/21 21:00 02/21/21 08:48 Sodium Chloride 1,000 ml @ 100 mls/hr Q10H IV 02/11/21 19:00 02/12/21 14:59 DC 02/12/21 04:27 Tamsulosin HCl (Flomax) 0.4 mg DAILY@2100 PO 02/09/21 21:00 02/20/21 20:29 JULIETA SURESH MD Feb 21, 2021 14:41
[2021-02-21 20:00] VITALS: BP 173/98
[2021-02-21] MEDS: ATORVASTATIN 20 MG TAB PO SCH (20:18)
[2021-02-21] MEDS: **NOTE PATIENT COMMENT** MISC XX SCH (20:19)
[2021-02-21] MEDS: TAMSULOSIN 0.4 MG CAP PO SCH (20:21)
[2021-02-21] MEDS: RAMELTEON 8 MG TAB (ROZEREM) PO PRN (20:25)
[2021-02-22 06:00] VITALS: BP 139/74
[2021-02-22] MEDS: COMBIVENT RESPIMAT 100-20MCG INHALER 4GM INH SCH ×4 (07:40→20:12)
[2021-02-22] MEDS: ACETAMINOPHEN 500 MG TAB PO SCH ×3 (09:00→20:22)
[2021-02-22] MEDS: LIDOCAINE 5% (LIDODERM) PATCH TD SCH (09:00)
[2021-02-22] MEDS: CitaloPRAM (CeleXA) 20 MG TAB PO SCH (09:19)
[2021-02-22] MEDS: CALCIUM/VITAMIN D 500 MG TAB PO SCH ×2 (09:19→20:21)
[2021-02-22] MEDS: ASPIRIN 81MG ENTERIC TABLET PO SCH (09:19)
[2021-02-22] MEDS: PANTOPRAZOLE 40MG TAB (PROTONIX) PO SCH (09:19)
[2021-02-22] MEDS: APIXABAN 5 MG TAB (ELIQUIS) PO SCH ×2 (09:19→20:21)
[2021-02-22] MEDS: **hydrALAZINE HCL** 25 MG TAB PO SCH ×2 (09:20→20:22)
[2021-02-22] MEDS: guaiFENesin 200 MG TAB PO SCH (09:20)
[2021-02-22] MEDS: MAGIC MOUTHWASH SUSPENSION BTL SSP SCH ×3 (09:21→17:43)
[2021-02-22] MEDS: REMEDY PHYTOPLEX Z-GUARD PASTE 113GM TUBE (FROM STOREROOM PRODUCT) TOP SCH ×3 (09:21→20:22)
[2021-02-22] MEDS ORDERED: guaiFENesin 200 MG TAB PO PRN (10:30)
--- NOTE | 2021-02-22 10:44 | IPNPDOC ---
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 MRI was ordered showing old bilateral basal ganglia infarcts with an acute right stevenson radiata lacunar infarct. He was started on aspirin and statin and had a spinal tap done which ruled out meningitis. The etiology of his stroke was thought to be due to chronic HTN as patient reported non-compliance with BP meds. He had diarrhea and was tested for C diff which was negative. Imaging was also performed on his left knee, pelvis, and sacrum to rule out fractures in setting of recent falls and all were negative, however did show osteopenia. He was evaluated by therapy and found to have mobility and ADL impairments. On admission he had right shoulder pain and decreased ROM and some burning with urination. 02.13.2021 BP elevated 200 systolic prior to morning medications. By the afternoon. It was 116/71. Patient noted he felt as if he was spinning. Speech pathology noted concern over a bedside swallowing evaluation and barium swallow was requested. Orthostatic blood pressures and ongoing blood pressure monitoring requested. 02.14.2021 Patient is better today, less complaint of dizziness, ready to participate in OT self-care activities today. Systolic blood pressure again elevated this morning at 170. Prior to medications. I discussed with nursing, adjusting the timing of dosing to begin earlier in the morning. We will continue to monitor. Orthostatics. He has when necessary meclizine for dizziness. However, suspect is more related to the blood pressure changes and poststroke effects. He cleared the swallowing evaluation. Case discussed with hospitalist team. 02.15.2021 He slept much better last night, blood pressure much improved with splitting the dose, lisinopril, at bedtime, earlier Amlodipine. No dizziness this morning. He is up and participating in therapy, although getting winded very easily. Heart rate and races up over 100 with minimal exertion. BM sluggish, frequent urination. 02.16.2021 Clearer, less dizziness, BP less labile with med changes. Participating in therapies, more motivated. 02.17.2021 Started off with more energy and enthusiasm, however, after short walks of therapy, became very dizzy, returned to the room. Blood sugar checks showed blood sugar 12. He had to void. Overall dizziness is intermittent, without nausea or vomiting. Blood pressures running in the 130s to 140s systolic, fasting sugars in the low 100s. Tight control. 02/21/2021 Doing much better, dizziness is abating, sleeping better and participating well in therapy. 02/22/2021 Continues to improve no longer coughing. Dizziness, improved with these scopolamine patch. Hes been spitting well in therapy modalities and has no pain. Had a BM yesterday. No complaints in that department. REVIEW OF SYSTEMS: The following is a completed review of systems and has been reviewed. Review of systems otherwise unremarkable. PAIN: Patient notes right shoulder pain EYES: No recent vision changes EARS, NOSE, & THROAT: +dysphagia, cleared swallowing eval CARDIOVASCULAR: Denies chest pain or palpitations PULMONARY: Denies shortness of breath GASTROINTESTINAL: Denies constipation/diarrhea GENITOURINARY: +frequency MUSCULOSKELETAL: generalized weakness NEUROLOGICAL:+right sided paresis HEMATOLOGICAL: denies easy bruising SKIN: denies rash PSYCHIATRIC: Unremarkable All other review of systems found to be negative. PHYSICAL EXAMINATION: VITAL SIGNS: Please see below. GENERAL: Pleasant and cooperative. HEENT: Clear conjunctiva, EOMI, no nystagmus, no adenopathy CARDIOVASCULAR: S1,S2 LUNGS: Clear to auscultation bilaterally. No wheezes. No rhonchi ABDOMEN: Soft, nontender, non distended. Positive bowel sounds. NEUROLOGICAL: Alert. Sensation grossly intact EXTREMITIES: 4+\\5 strength LUE, 4+/5 RUE, 5\\5 strength right TA, 4+/5 left negative Homans. LABS: Reviewed. Pertinent findings include 02/16/2021, sodium 135, potassium, blood sugar 107, alkaline phosphatase slightly increasing at 134 FUNCTIONAL STATUS: 7. Pt tolerated higher level IADL task with loading a washer and transferring laundry from washer>dryer>back to basket while bending and reaching down low. Pt demonstrating safe ability to complete laundry if the basket is in the laundry room as pt would not be safe transferring laundry while managing RW. Fatigues easily. Pts daughter receptive and reports he will have family support for cooking and cleaning that he is not able to complete. 02.21.2021 Patient discussed at length in Team conference Pt agreeable to shower today; retrieved clothing and towels/washclothes prior to ADL. Placed commode over pts toilet to simulate toilet transfers at home as he does not have GBs around his toilet and he relies on the GBs for safety; pt able to demonstrate safe transfers when reaching back for hand rails on commode. Pt mod I for dressing tasks with use of core extruder to assist in doffing vick socks. SBA for shower transfer with attempt for pt to not use GB as he currently does not have GB's in his shower. Pt relied on GB's for increased safety throughout shower; education on potentional need of shower chair if pt is unable to put GB's in shower, otherwise mod I when sitting in shower chair. Will contact daughter to update her on showers at this time. Pt agreeable to shower chair for increased safety at this time. Pt also required to sit at the end of his shower due to fatigue as he stood for the whole shower. He was able to bathe mod I with long handled sponge for vick LE's and while holding onto GB's for the remainder of his UB/LB. Pt required increased time to complete all tasks as he reported needing to try to have a BM several times throughout all tasks limiting ability to continue to progress functional endurance throughout all tasks 7. . Continued work on gait with standby assist using front-wheeled walker, interrupted with episodic dizziness, and need for frequent rest breaks fatigues. 7.t. continues to demonstrate improved activity tolerance and endurance; ambulates 75ft intervals with SBA; also completes 6 steps with SBA as well. Worked on dynamic gait activities with emphasis on obstacle negotiation and tight turns; noting mild difficulty maintaining feet safely within RW when making tight turns;. 02.15.2021 Pt without c/o dizziness with transitions this session. Family training being provided and Pt educated on supine ther ex and given paper HEP. Pt remains below baseline, however is motivated to improve and a good rehab candidate, making slow progress. Easily fatigues and requires frequent rest breaks. 02.14.2021 Discussed in TEAM Yesterday Attempted standing therex and short distance ambulation; noting significant SOB with 25ft ambulation; Pt. reporting that "he is beat" and "cannot do anymore". Also noting increased level of assist required as needs Lesli to stand safely at end of session. Returned to supine to assess vital signs as Pt. appearing diaphoretic and with slow reaction to verbal cues and assessment; HR 88bpm; SpO2 96% and BP 132/78mmHg. [id number] swallowing study There is no evidence of penetration or aspiration 02.11.2021 MRI Brain There is no evidence of intracranial mass or hemorrhage. However, T2 weighted scans and diffusion-weighted images demonstrate acute ischemia pattern in several areas. These include the left frontal periventricular region and bilaterally in the posterior frontal periventricular stevenson radiata region. There is restricted diffusion in the left thalamus with some linear area of restricted diffusion coursing along the left cerebral peduncle. There are small vessel changes and there is minimal generalized volume loss 02.10.2021 Shoulder xray The right glenohumeral and acromioclavicular joints are normally aligned. 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 Osteoarthritic hypertrophy and narrowing is seen at the AC joint as well. Periarticular soft tissues are unremarkable. The visualized right hemithorax appears intact ASSESSMENT: CVA. Hypertension. Osteopenia. Vertigo. HLD 65-year-old M with past medical history of CVA, HTN who presents status post new left stevenson radiata infarct , recent episode of dizziness associated with labile blood pressure, possible orthostatic hypotension, OA right shoulder girdle, no evidence aspiration on swallowing study. PLAN: 1. 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 2. Neuro- hx of multiple bilateral strokes, now with left stevenson radiata infarct- c/u ASA and statin for secondary stroke prevention -on celexa - Dizziness improving, mobility stabilizing continue scopoloamine 3. Cardiac-Labile HTN c/u BP meds and adjustment timing and dosing appreciate hospitalist input with shift Lisinopril to PM, Amlodipine earlier in AM for better 24hr coverage, seems to have minimized orthostatic symptoms/changes. LAM hose to continue. He seems to have stabilized with the prior orthostatic changes and heart rate/recovery issues -monitor for signs of CHF, daily weights, better I&O. 90.7 KG holding steady -medicine consulted to assist in overall management 4. Resp- patient cough improving, WBC stable,c/u combivent and guaifenesin, will change to PRN 5. - patient previously was reporting frequency and dysuria- last UA pos hematuria, negative for infection encourage fluids, symptoms seem to have abated. 6. DVT ppx- heparin 7. Pain- right shoulder pain consistent with OA given pain with external rotation, trial lidoderm patch, X-ray negative for fracture/subluxation symptoms seem to be abating with therapy 8. GI ppx- protonix -c/u imodium prn loose stools given recent hx of diarrhea (C diff negative) 9. Dispo- tbd TIME SPENT: Chart Review, examination and documentation [30] minutes. Allergies Coded Allergies: lactose (Verified Allergy, Unknown, INTOLERANCE, 02/09/21) Vital Signs Vital Signs Date Time Temp Pulse Resp B/P (MAP) Pulse Ox O2 Delivery O2 Flow Rate FiO2 02/22/21 09:20 136/79 02/22/21 06:00 97.8 56 12 95 Room Air Current Medications Current Medications Current Medications Medications (Trade) Dose Ordered Sig/Wallace Route PRN Reason Start Time Stop Time Status Last Admin Dose Admin Acetaminophen (Tylenol Tab) 650 mg Q4HP PRN PO fever/MILD PAIN (PS 1-4) 02/09/21 13:55 02/09/21 18:58 DC 02/09/21 18:41 Acetaminophen (Tylenol Tab) 1,000 mg TID PO 02/09/21 21:00 02/21/21 20:18 Albuterol/ Ipratropium (Combivent Respimat 100-20mcg) 1 puff RQID INH 02/09/21 20:00 02/22/21 07:40 Amlodipine Besylate (Norvasc) 10 mg DAILY PO 02/10/21 09:00 02/14/21 12:07 DC 02/14/21 08:31 Amlodipine Besylate (Norvasc) 10 mg DAILY@0600 PO 02/15/21 06:00 02/22/21 05:34 Apixaban (Eliquis) 5 mg BID PO 02/10/21 21:00 02/22/21 09:19 Aspirin (Ecotrin) 81 mg DAILY PO 02/10/21 09:00 02/22/21 09:19 Atorvastatin Calcium (Lipitor) 80 mg QHS PO 02/09/21 21:00 02/21/21 20:18 Bisacodyl (Dulcolax Suppository) 10 mg DAILYPRN PRN HI CONSTIPATION 02/09/21 13:55 Calcium/Vitamin D (Oscal D) 500 mg BID PO 02/09/21 21:00 02/22/21 09:19 Citalopram Hydrobromide (CeleXA) 20 mg DAILY PO 02/10/21 09:00 02/22/21 09:19 Docusate Sodium (Colace) 100 mg BID PO 02/09/21 21:00 02/09/21 14:41 DC Docusate Sodium (Colace) 100 mg BID PRN PO constipation 02/09/21 21:00 02/21/21 20:18 Guaifenesin (Robitussin Tab) 400 mg TID PO 02/09/21 21:00 02/22/21 10:26 DC 02/22/21 09:20 Guaifenesin (Robitussin Tab) 400 mg TID PRN PO COUGH 02/22/21 10:30 Heparin Sodium (Porcine) (Heparin) 5,000 units Q12H SC 02/10/21 09:00 02/10/21 23:39 DC 02/10/21 20:56 Home Med (Med Rec Complete!) ASDIRECTED XX 02/09/21 15:25 02/09/21 15:38 DC Hydralazine HCl (Apresoline) 12.5 mg Q6H PRN PO sBP >140 or dBP >90 02/09/21 13:55 02/09/21 21:54 DC 02/09/21 20:20 Hydralazine HCl (Apresoline) 25 mg BID PO 02/21/21 09:00 02/22/21 09:20 Hydralazine HCl (Apresoline) 25 mg Q6H PO 02/10/21 00:00 02/21/21 08:01 DC 02/20/21 05:35 Lidocaine (Lidoderm Patch) 1 patch QHS TD 02/09/21 21:00 02/10/21 09:34 DC 02/09/21 20:20 Lidocaine (Lidoderm Patch) 2 patch DAILY TD 02/11/21 09:00 02/15/21 09:38 Lidocaine/ Diphenhydr/Alum/ Mg/Simeth (Magic Mouthwash) 5ML AC SSP 02/10/21 07:30 02/22/21 09:21 Lisinopril (Prinivil) 20 mg DAILY PO 02/10/21 09:00 02/14/21 10:31 DC 02/14/21 08:31 Lisinopril (Prinivil) 20 mg DAILY@0600 PO 02/15/21 06:00 02/14/21 12:07 DC Lisinopril (Prinivil) 20 mg QHS PO 02/14/21 21:00 02/21/21 20:18 Loperamide HCl (Imodium) 2 mg ASDIRECTED PRN PO DIARRHEA 02/09/21 14:40 Meclizine HCl (Antivert) 50 mg TIDP PRN PO dizziness 02/11/21 08:40 02/22/21 10:25 DC 02/19/21 20:36 Non-Formulary Medication ( See Comment Field Below ) REMOVE LIDODERM PATCH DAILY@0900 XX 02/10/21 09:00 02/10/21 13:00 DC 02/10/21 09:06 Non-Formulary Medication ( See Comment Field Below ) REMOVE LIDODERM PATCH DAILY@21 XX 02/11/21 21:00 02/19/21 20:37 Nystatin (Mycostatin) 5 ml TID SSP 02/09/21 21:00 02/14/21 16:01 DC 02/14/21 16:15 Pantoprazole Sodium (Protonix) 40 mg DAILY PO 02/10/21 09:00 02/22/21 09:19 Polyethylene Glycol (Miralax) 1 pkt DAILY PRN PO CONSTIPATION 02/09/21 13:55 02/21/21 08:48 Potassium Chloride (Micro-K Extencaps) 40 meq BID PO 02/11/21 09:00 02/14/21 11:52 DC 02/14/21 08:31 Ramelteon (Rozerem) 8 mg QHS PRN PO INSOMNIA 02/09/21 19:45 02/21/21 20:25 Scopolamine (Scopolamine) 1 mg Q72H TOP 02/18/21 13:00 02/21/21 12:38 Senna (Senokot) 1 tab QHS PO 02/09/21 21:00 02/09/21 14:41 DC Senna (Senokot) 1 tab QHS PRN PO constipation 02/09/21 21:00 02/21/21 08:48 Sodium Chloride 1,000 ml @ 100 mls/hr Q10H IV 02/11/21 19:00 02/12/21 14:59 DC 02/12/21 04:27 Tamsulosin HCl (Flomax) 0.4 mg DAILY@2100 PO 02/09/21 21:00 02/21/21 20:21 JULIETA SURESH MD Feb 22, 2021 10:44
--- NOTE | 2021-02-22 11:52 | IPNPDOC ---
Text Note Date of Service The patient was seen on 02/22/21. NOTE Pt seen and examined. Continues to participate in therapy PHYSICAL EXAMINATION: GENERAL: Awake, alert, oriented, able to speak in full sentences. HEENT: No nasopharyngeal deviation. Face is asymmetric with right facial drooping. Uvula and tongue both midline. LUNGS: Clear to auscultation. No wheezing, rales or rhonchi. HEART: S1, S2. Irregularly irregular. ABDOMEN: Soft, nontender, nondistended. Positive bowel sounds. EXTREMITIES: No cyanosis or clubbing. NEUROLOGIC: Slight pronator drift on the right upper extremity. No dysmetria on [id number] testing. Right upper extremity 4/5 strength. Bilateral lower extremities 5/5 strength. LABORATORY DATA: Laboratory data, imaging studies: Please see the chart. ASSESSMENT and PLAN: A 65-year-old male with history of hypertension, hyperlipidemia, prior history of smoking, cerebrovascular accident (CVA), noncompliant with medications, admitted after an acute right stevenson radiata lacunar infarction with old bilateral basal ganglia infarctions, complaint of diarrhea and right shoulder pain, admitted to acute rehabilitation services due to new CVA in the setting of old bilateral basal ganglia CVA. 1. Acute right stevenson radiata lacunar infarction with old bilateral basal ganglia cerebrovascular accident (CVA) with ataxia. Patient has a new onset of atrial fibrillation and has been placed on Eliquis 5 mg twice a day. He continues to be on aspirin and high-dose statin. 2. MARIA C . Resolved. he patient has been on lisinopril 20 mg. BMP reviewed, Cr stable. He shows no signs of dehydration or encephalopathy at this time. 3. New onset atrial fibrillation. Currently on apixaban. Rate controlled 4. Hypertension, currently controlled. Holding parameters placed. On lisinopril, amlo and hydralazine. 5. Hyperlipidemia, chronic. On statin. 6. Depression, chronic. 7. History of medical noncompliance. Not taking his medications for his stroke. Currently compliant while in acute rehabilitation unit (ARU). 8. Chronic right shoulder pain. As needed pain medications. Fall precautions. Activity as tolerated, Continue with physical therapy (PT), occupational therapy (OT). Monitor intake and output, daily weights and urine output. Disposition as per primary. VS,Jongbone, I+O VS, Fishbone, I+O Vital Signs Date Time Temp Pulse Resp B/P (MAP) Pulse Ox O2 Delivery O2 Flow Rate FiO2 02/22/21 09:20 136/79 02/22/21 06:00 97.8 56 12 95 Room Air I&O- Last 24 Hours up to 6 AM 02/22/21 05:59 Intake Total 1340 ml Balance 1340 ml SARAY DODGE MD Feb 22, 2021 11:52
[2021-02-22 14:00] VITALS: BP 122/66
[2021-02-22 20:00] VITALS: BP 130/75
[2021-02-22] MEDS: RAMELTEON 8 MG TAB (ROZEREM) PO PRN (20:21)
[2021-02-22] MEDS: ATORVASTATIN 20 MG TAB PO SCH (20:21)
[2021-02-22] MEDS: TAMSULOSIN 0.4 MG CAP PO SCH (20:21)
[2021-02-22] MEDS: **NOTE PATIENT COMMENT** MISC XX SCH (20:23)
[2021-02-23 05:00] VITALS: BP 147/76
[2021-02-23] MEDS: COMBIVENT RESPIMAT 100-20MCG INHALER 4GM INH SCH ×2 (07:28→11:00)
[2021-02-23 08:00] VITALS: BP 125/79
--- NOTE | 2021-02-23 08:51 | DS.PDOC ---
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 Hypertension. Osteopenia. Vertigo. HLD. Depression Diarrhea PAST MEDICAL HISTORY: CVA. Hypertension. Osteopenia. HLD Depression HOSPITAL COURSE: 65M pmh HTN, HLD, hx of CVA, depression presented to [facility] 02-02-21 with worsening confusion and recurrent falls. MRI was ordered showing old bilateral basal ganglia infarcts with an acute right stevenson radiata lacunar infarct. He was started on aspirin and statin and had a spinal tap done which ruled out meningitis. The etiology of his stroke was thought to be due to chronic HTN as patient reported non-compliance with BP meds. He had diarrhea and was tested for C diff which was negative. Imaging was also performed on his left knee, pelvis, and sacrum to rule out fractures in setting of recent falls and all were negative, however did show osteopenia. He was evaluated by therapy and found to have mobility and ADL impairments. On admission he had right shoulder pain and decreased ROM and some burning with urination. 02.13.2021 BP elevated 200 systolic prior to morning medications. By the afternoon. It was 116/71. Patient noted he felt as if he was spinning. Speech pathology noted concern over a bedside swallowing evaluation and barium swallow was requested. Orthostatic blood pressures and ongoing blood pressure monitoring requested. 02.14.2021 Patient is better today, less complaint of dizziness, ready to participate in OT self-care activities today. Systolic blood pressure again elevated this morning at 170. Prior to medications. I discussed with nursing, adjusting the timing of dosing to begin earlier in the morning. We will continue to monitor. Orthostatics. He has when necessary meclizine for dizziness. However, suspect is more related to the blood pressure changes and poststroke effects. He cleared the swallowing evaluation. Case discussed with hospitalist team. 02.15.2021 He slept much better last night, blood pressure much improved with splitting the dose, lisinopril, at bedtime, earlier Amlodipine. No dizziness this morning. He is up and participating in therapy, although getting winded very easily. Heart rate and races up over 100 with minimal exertion. BM sluggish, frequent urination. 7 Clearer, less dizziness, BP less labile with med changes. Participating in therapies, more motivated. 02.17.2021 Started off with more energy and enthusiasm, however, after short walks of therapy, became very dizzy, returned to the room. Blood sugar checks showed blood sugar 12. He had to void. Overall dizziness is intermittent, without nausea or vomiting. Blood pressures running in the 130s to 140s systolic, fasting sugars in the low 100s. Tight control. 02/21/2021 Doing much better, dizziness is abating, sleeping better and participating well in therapy. 02/22/2021 Continues to improve no longer coughing. Dizziness, improved with these scopolamine patch. Hes been spitting well in therapy modalities and has no pain. Had a BM yesterday. No complaints in that department. 02/23/2021 patient did well overnight with no incidents, demonstrates good safety awareness and anticipates going home with assistance of grandson. Diarrhea symptoms have abated. Decision made to provide bedside commode and wheelchair for distance ambulation and safety and toileting minimizing opportunities for falls. Patient was counseled regarding importance of continuing with his medications and to discuss with his primary care physician about long-term continuation of the scopolamine as the dizziness is anticipated to improve. PHYSICAL EXAMINATION: VITAL SIGNS: Please see below. GENERAL: Pleasant and cooperative. HEENT: Clear conjunctiva, EOMI, no nystagmus, no adenopathy CARDIOVASCULAR: S1,S2 LUNGS: Clear to auscultation bilaterally. No wheezes. No rhonchi ABDOMEN: Soft, nontender, non distended. Positive bowel sounds. NEUROLOGICAL: Alert. Sensation grossly intact EXTREMITIES: 4+\5 strength LUE, 55 RUE, 5\5 strength right TA, 4+/5 left negative Homans. Able to raise both arms less pain about the right shoulder girdle. FUNCTIONAL STATUS: At discharge, patient was mod I for mobility and self-care activities with use of front wheeled walker, bedside commode and had achieved social continence. [id number] swallowing study There is no evidence of penetration or aspiration 02.11.2021 MRI Brain There is no evidence of intracranial mass or hemorrhage. However, T2 weighted scans and diffusion-weighted images demonstrate acute ischemia pattern in several areas. These include the left frontal periventricular region and bilaterally in the posterior frontal periventricular stevenson radiata region. There is restricted diffusion in the left thalamus with some linear area of restricted diffusion coursing along the left cerebral peduncle. There are small vessel changes and there is minimal generalized volume loss 6.25.2020 Shoulder xray The right glenohumeral and acromioclavicular joints are normally aligned. 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 Osteoarthritic hypertrophy and narrowing is seen at the AC joint as well. Periarticular soft tissues are unremarkable. The visualized right hemithorax appears intact Disposition home with family support TIME SPENT: Chart Review, examination and documentation 4o minutes. This document is generated using speech recognition software which may result in grammatical, typographical and individual word errors. Vital Signs/I&O Vital Sign - Last 24 Hours 02/22/21 02/22/21 02/22/21 02/22/21 09:20 14:00 20:00 20:22 Temp 97.9 98.5 Pulse 73 71 Resp 18 18 B/P (MAP) 136/79 122/66 (84) 130/75 (93) 130/75 Pulse Ox 96 95 O2 Delivery Room Air Room Air 02/23/21 02/23/21 05:00 05:34 Temp 98.0 Pulse 63 63 Resp 18 B/P (MAP) 147/76 (99) 147/76 Pulse Ox 95 O2 Delivery Room Air I&O- Last 24 Hours up to 6 AM 02/23/21 06:00 Intake Total 580 ml Balance 580 ml Medications Medications Current Medications Medications (Trade) Dose Ordered Sig/Wallace Route PRN Reason Start Time Stop Time Status Last Admin Dose Admin Acetaminophen (Tylenol Tab) 650 mg Q4HP PRN PO fever/MILD PAIN (PS 1-4) 02/09/21 13:55 02/09/21 18:58 DC 02/09/21 18:41 Acetaminophen (Tylenol Tab) 1,000 mg TID PO 02/09/21 21:00 02/22/21 20:22 Albuterol/ Ipratropium (Combivent Respimat 100-20mcg) 1 puff RQID INH 02/09/21 20:00 02/23/21 07:28 Amlodipine Besylate (Norvasc) 10 mg DAILY PO 02/10/21 09:00 02/14/21 12:07 DC 02/14/21 08:31 Amlodipine Besylate (Norvasc) 10 mg DAILY@0600 PO 02/15/21 06:00 02/23/21 05:34 Apixaban (Eliquis) 5 mg BID PO 02/10/21 21:00 02/22/21 20:21 Aspirin (Ecotrin) 81 mg DAILY PO 02/10/21 09:00 02/22/21 09:19 Atorvastatin Calcium (Lipitor) 80 mg QHS PO 02/09/21 21:00 02/22/21 20:21 Bisacodyl (Dulcolax Suppository) 10 mg DAILYPRN PRN CO CONSTIPATION 02/09/21 13:55 Calcium/Vitamin D (Oscal D) 500 mg BID PO 02/09/21 21:00 02/22/21 20:21 Citalopram Hydrobromide (CeleXA) 20 mg DAILY PO 02/10/21 09:00 02/22/21 09:19 Docusate Sodium (Colace) 100 mg BID PO 02/09/21 21:00 02/09/21 14:41 DC Docusate Sodium (Colace) 100 mg BID PRN PO constipation 02/09/21 21:00 02/21/21 20:18 Guaifenesin (Robitussin Tab) 400 mg TID PO 02/09/21 21:00 02/22/21 10:26 DC 02/22/21 09:20 Guaifenesin (Robitussin Tab) 400 mg TID PRN PO COUGH 02/22/21 10:30 Heparin Sodium (Porcine) (Heparin) 5,000 units Q12H SC 02/10/21 09:00 02/10/21 23:39 DC 02/10/21 20:56 Home Med (Med Rec Complete!) ASDIRECTED XX 02/09/21 15:25 02/09/21 15:38 DC Hydralazine HCl (Apresoline) 12.5 mg Q6H PRN PO sBP >140 or dBP >90 02/09/21 13:55 02/09/21 21:54 DC 02/09/21 20:20 Hydralazine HCl (Apresoline) 25 mg BID PO 02/21/21 09:00 02/22/21 20:22 Hydralazine HCl (Apresoline) 25 mg Q6H PO 02/10/21 00:00 02/21/21 08:01 DC 02/20/21 05:35 Lidocaine (Lidoderm Patch) 1 patch QHS TD 02/09/21 21:00 02/10/21 09:34 DC 02/09/21 20:20 Lidocaine (Lidoderm Patch) 2 patch DAILY TD 02/11/21 09:00 02/15/21 09:38 Lidocaine/ Diphenhydr/Alum/ Mg/Simeth (Magic Mouthwash) 5ML AC SSP 02/10/21 07:30 02/22/21 17:43 Lisinopril (Prinivil) 20 mg DAILY PO 02/10/21 09:00 02/14/21 10:31 DC 02/14/21 08:31 Lisinopril (Prinivil) 20 mg DAILY@0600 PO 02/15/21 06:00 02/14/21 12:07 DC Lisinopril (Prinivil) 20 mg QHS PO 02/14/21 21:00 02/22/21 20:22 Loperamide HCl (Imodium) 2 mg ASDIRECTED PRN PO DIARRHEA 02/09/21 14:40 Meclizine HCl (Antivert) 50 mg TIDP PRN PO dizziness 02/11/21 08:40 02/22/21 10:25 DC 02/19/21 20:36 Non-Formulary Medication ( See Comment Field Below ) REMOVE LIDODERM PATCH DAILY@0900 XX 02/10/21 09:00 02/10/21 13:00 DC 02/10/21 09:06 Non-Formulary Medication ( See Comment Field Below ) REMOVE LIDODERM PATCH DAILY@21 XX 02/11/21 21:00 02/19/21 20:37 Nystatin (Mycostatin) 5 ml TID SSP 02/09/21 21:00 02/14/21 16:01 DC 02/14/21 16:15 Pantoprazole Sodium (Protonix) 40 mg DAILY PO 02/10/21 09:00 02/22/21 09:19 Polyethylene Glycol (Miralax) 1 pkt DAILY PRN PO CONSTIPATION 02/09/21 13:55 02/21/21 08:48 Potassium Chloride (Micro-K Extencaps) 40 meq BID PO 02/11/21 09:00 02/14/21 11:52 DC 02/14/21 08:31 Ramelteon (Rozerem) 8 mg QHS PRN PO INSOMNIA 02/09/21 19:45 02/22/21 20:21 Scopolamine (Scopolamine) 1 mg Q72H TOP 02/18/21 13:00 02/21/21 12:38 Senna (Senokot) 1 tab QHS PO 02/09/21 21:00 02/09/21 14:41 DC Senna (Senokot) 1 tab QHS PRN PO constipation 02/09/21 21:00 02/21/21 08:48 Sodium Chloride 1,000 ml @ 100 mls/hr Q10H IV 02/11/21 19:00 02/12/21 14:59 DC 02/12/21 04:27 Tamsulosin HCl (Flomax) 0.4 mg DAILY@2100 PO 02/09/21 21:00 02/22/21 20:21 Scheduled Amlodipine Besylate (Amlodipine Besylate) 10 Mg Tablet, 10 MG PO DAILY, (Reported) Aspirin (Ecotrin) 81 Mg Tablet.dr, 81 MG PO DAILY, (Reported) Citalopram Hydrobromide (Citalopram HBr) 20 Mg Tablet, 20 MG PO DAILY, (Reported) DECREASED FROM 40 MG AT [facility] Heparin Sodium,Porcine/Pf (Heparin Sod 5,000 Unit/ml Syrg) 5,000 Unit/1 Ml S yringe, 5,000 UNIT INJ Q12H, (Reported) STARTED AT [facility] Lisinopril (Lisinopril) 20 Mg Tablet, 20 MG PO DAILY, (Reported) STARTED AT [facility] Melatonin (Melatonin) 5 Mg Capsule, 5 MG PO QHS, (Reported) Pantoprazole Sodium (Pantoprazole Sodium) 40 Mg Tablet.dr, 40 MG PO DAILY, (Reported) STARTED AT [facility] Tamsulosin HCl (Flomax) 0.4 Mg Capsule, 0.4 MG PO QHS, (Reported) Allergies Coded Allergies: lactose (Verified Allergy, Unknown, INTOLERANCE, 02/09/21) JULIETA SURESH MD Feb 23, 2021 08:51
[2021-02-23] MEDS: CALCIUM/VITAMIN D 500 MG TAB PO SCH (08:52)
[2021-02-23] MEDS: APIXABAN 5 MG TAB (ELIQUIS) PO SCH (08:52)
[2021-02-23] MEDS: ASPIRIN 81MG ENTERIC TABLET PO SCH (08:52)
[2021-02-23] MEDS: PANTOPRAZOLE 40MG TAB (PROTONIX) PO SCH (08:52)
[2021-02-23] MEDS: CitaloPRAM (CeleXA) 20 MG TAB PO SCH (08:52)
[2021-02-23 08:53] VITALS: BP 125/79
[2021-02-23] MEDS: **hydrALAZINE HCL** 25 MG TAB PO SCH (08:53)
[2021-02-23] MEDS: MAGIC MOUTHWASH SUSPENSION BTL SSP SCH ×2 (08:53→13:26)
[2021-02-23] MEDS: ACETAMINOPHEN 500 MG TAB PO SCH (08:53)
[2021-02-23] MEDS: LIDOCAINE 5% (LIDODERM) PATCH TD SCH (08:53)
[2021-02-23] MEDS: REMEDY PHYTOPLEX Z-GUARD PASTE 113GM TUBE (FROM STOREROOM PRODUCT) TOP SCH (08:54)
[2021-02-23] MEDS ORDERED: SCOP1PAT2 TOP (08:56)
[2021-02-23] MEDS ORDERED: HYDR25TA PO (08:56)
[2021-02-23] MEDS ORDERED: ATOR1TAB21 PO (08:56)
[2021-02-23] MEDS ORDERED: ELIQ5TAB PO (08:56)
== END 2021-02-23 14:30 | disposition home health service (06) | DRG 58 ==
LOC: M PM&R 13:26
PROVIDERS: ADMIT Physical Medicine & Rehabilitation; ATTEND Physical Medicine & Rehabilitation
DX: I69.391 Dysphagia following cerebral infarction (principal); B37.0 Candidal stomatitis; R13.10 Dysphagia, unspecified; I48.91 Unspecified atrial fibrillation; I69.398 Other sequelae of cerebral infarction; I10 Essential (primary) hypertension; E78.5 Hyperlipidemia, unspecified; F32.9 Major depressive disorder, single episode, unspecified; Z91.14 Patient's other noncompliance with medication regimen; Z74.09 Other reduced mobility; Z74.1 Need for assistance with personal care; R30.0 Dysuria; R53.1 Weakness; Z79.82 Long term (current) use of aspirin; Z79.899 Other long term (current) drug therapy; E73.9 Lactose intolerance, unspecified; Z87.891 Personal history of nicotine dependence; M19.011 Primary osteoarthritis, right shoulder